=== PATIENT | female | born 2000 | race African-American/Black ===

== ENCOUNTER 2023-09-21 09:55 | Emergency (ER) | payer OTHER, SELFPAY ==
[2023-09-21 10:11] VITALS: BP 135/79
[2023-09-21 10:51] VITALS: BP 117/69
--- NOTE | 2023-09-21 10:52 | ED.GENMED ---
History of Present Illness
<Nae Brand PA-C - Last Filed: 09/21/23 16:54>
General
Chief Complaint: Gynecological Problem
Source: patient
Exam Limitations: none
Time Seen by Provider: 09/21/23 10:25
Nursing documentation reviewed up to this point in time: agreed with
History of Present Illness
History of Present Illness:
23 y/o F with hh/o HTN, HLD, prediabetic no on meds
here with 4 days of vaginal itching, irritation, bumpy rash
She has 1 sexual partner, for the last 1 to 2 months and says that previous partner she has used condoms mostly. She has never had genital herpes or herpes simplex in her mouth. Patient says that she has no dysuria, urinary frequency, pelvic pain.
She the last couple days she has felt like maybe she had a low-grade temperature and not well as well. She used a Monistat cream before coming today suspecting that she had a yeast infection which she has had a history of previously once before.
She has never seen a patrol community service officer
Past History
<Nae Brand PA-C - Last Filed: 09/21/23 16:54>
Past History
ED Past Medical History: Psychiatric and Other (Asberger's, anxiety, pseudoseizures.)
ED Past Surgical History: Cholecystectomy
Social History
Tobacco: Non-smoker
Alcohol: None
Drug: None
Personal: Single
Living: other (on line student)
Family History
Family History: Unable to obtain
Review of Systems
<Nae Brand PA-C - Last Filed: 09/21/23 16:54>
Review of Systems
Allergies reviewed?: Yes
All Other Systems: Not applicable
Phy Exam
<TEO Fernandez Last Filed: 09/21/23 16:54>
Physical Exam
Physical Exam:
GENERAL: Alert , in no apparent distress
EYE: pupils equal and reactive
NECK: Supple
ENT: o/p clr, mmm.
CARDIAC: Regular rate and rhythm .
LUNGS: Clear breath sounds bilaterally, no acute respiratory distress, no wheezes/rales/rhonchi
ABDOMEN: Soft, without focal tenderness, no r/g, no cvat, normal bowel sounds
gu: Patient has redness to the vulva with several vesicular lesions, 1 is an ulceration with a an yellowish base in her labia minora and near her introitus suspicious for genital herpes she is a large amount of white clumpy discharge in her vagina
but this is possibly
The cream that she used prior to arrival
She had no CMT, no adnexal tenderness
SKIN: Warm and dry, skin intact.
MUSCULOSKELETAL: No edema, well perfused. neg katie's sign
PSYCH: Normal and appropriate interaction.
Course
<Nae Brand PA-C - Last Filed: 09/21/23 16:54>
Orders/Labs/Results
Orders:
Orders
09/21/23 10:56
Bedside Glucose- Treatment ONCE
09/21/23 10:57
Test Result ONCE
09/21/23 10:58
Fluconazole [Diflucan] 150 mg PO NOW STA
Valacyclovir HCl [Valtrex] 1,000 mg PO NOW STA
09/21/23 11:12
Herpes Culture Reflex - Typing Urgent
PRUDENCE Source: Genital
Specimen Description:
Source:: GENITAL
Date Specimen was Collected: 09/21/23
Time Specimen was Collected: 11:11
Chlamydia/GC by PCR Urgent
PRUDENCE Source: Endo-Cervical
Specimen Description:
Source:: ENDOCERVICAL
Date Specimen was Collected: 09/21/23
Time Specimen was Collected: 11:10
Trichomonas - Wet Prep Urgent
PRUDENCE Source: Vagina
Specimen Description:
Date Specimen was Collected: 09/21/23
Time Specimen was Collected: 11:10
09/21/23 11:18
Fluconazole [Diflucan] 150 mg PO NOW STA
09/21/23 11:36
HCG, Urine Qualitative Screen Urgent
Date Specimen was Collected: 09/21/23
Time Specimen was Collected: 11:26
Vital Signs
Initial and Last Documented VS:
Initial Vital Signs
Temp Pulse Resp BP Pulse Ox
99.1 F 122 16 135/79 97
09/21/23 10:11 09/21/23 10:11 09/21/23 10:11 09/21/23 10:11 09/21/23 10:11
Last Documented Vital Signs
Temp Pulse Resp BP Pulse Ox
98.5 F 117 16 100/71 99
09/21/23 12:36 09/21/23 12:36 09/21/23 12:36 09/21/23 12:32 09/21/23 12:36
<James Mercado PA-C - Last Filed: 09/24/23 09:11>
Orders/Labs/Results
Orders:
Orders
09/21/23 10:56
Bedside Glucose- Treatment ONCE
09/21/23 10:57
Test Result ONCE
09/21/23 10:58
Fluconazole [Diflucan] 150 mg PO NOW STA
Valacyclovir HCl [Valtrex] 1,000 mg PO NOW STA
09/21/23 11:12
Herpes Culture Reflex - Typing Urgent
PRUDENCE Source: Genital
Specimen Description:
Source:: GENITAL
Date Specimen was Collected: 09/21/23
Time Specimen was Collected: 11:11
Chlamydia/GC by PCR Urgent
PRUDENCE Source: Endo-Cervical
Specimen Description:
Source:: ENDOCERVICAL
Date Specimen was Collected: 09/21/23
Time Specimen was Collected: 11:10
Trichomonas - Wet Prep Urgent
PRUDENCE Source: Vagina
Specimen Description:
Date Specimen was Collected: 09/21/23
Time Specimen was Collected: 11:10
09/21/23 11:18
Fluconazole [Diflucan] 150 mg PO NOW STA
09/21/23 11:36
HCG, Urine Qualitative Screen Urgent
Date Specimen was Collected: 09/21/23
Time Specimen was Collected: 11:26
Vital Signs
Initial and Last Documented VS:
Initial Vital Signs
Temp Pulse Resp BP Pulse Ox
99.1 F 122 16 135/79 97
09/21/23 10:11 09/21/23 10:11 09/21/23 10:11 09/21/23 10:11 09/21/23 10:11
Last Documented Vital Signs
Temp Pulse Resp BP Pulse Ox
98.5 F 117 16 100/71 99
09/21/23 12:36 09/21/23 12:36 09/21/23 12:36 09/21/23 12:32 09/21/23 12:36
<Nae Brand PA-C - Last Filed: 09/21/23 16:54>
MDM/Problems Addressed
Differential Diagnosis Includes:
Genital herpes, yeast vulvovaginitis, shingles
MDM/Problems Addressed:
23-year-old female sexually active with 1 partner over the last 2 months with 4 days of genital itching, discomfort, painful bumpy lesions in her vulva. No history of genital herpes previously. Her partner has never known to have had herpes
infection previously. Patient has no urinary symptoms. LMP is 3 weeks ago. On exam she has generalized erythema consistent with a yeast vulvovaginitis as well as what look like herpetic lesions on the vulva and including her introitus consistent
with genital herpes infection. Her lesions were swabbed for culture. She was tested for gonorrhea, chlamydia, trichomonas.
Safe sex precautions given, follow-up with FORESTRY CONTRACTOR encouraged. Patient will need formal STD testing should her culture come back positive.
<Nae Brand PA-C - Last Filed: 09/21/23 16:54>
*Critical Care Note
Total Time (30-74mins, 75-104mins- exclusive of procedures): Not Applicable
<James Mercado PA-C - Last Filed: 09/24/23 09:11>
Update Note
Update Note:
9:10 AM September 24, 2023. Patient was contacted and informed of positive herpes simplex virus results. Advised to continue the Valtrex and avoidance of intercourse while having active outbreaks/lesions.
ED Attending Note
<Nae Brand PA-C - Last Filed: 09/21/23 16:54>
-
Portions of this chart may have been created with voice recognition software.� Occasional wrong word or��sound alike� substitutions may have occurred due to the inherent limitations of voice recognition software.
Discharge Plan
Departure
Patient Disposition: Home (Routine Discharge)
Date of Disposition: 09/21/23
Time of Disposition: 12:15
Patient with high blood pressure during this ER visit?: No
Condition: Fair
Covid-19: Not Applicable
Discharge Problem:
Vaginal yeast infection, Vaginal lesion
Instructions: Genital Herpes (DC), Vaginal Yeast Infection, Adult ED
Prescriptions:
New
valacyclovir 1 gram tablet
1,000 mg PO BID Qty: 20 0RF
clotrimazole 1 % cream
1 appful vaginal HS 3 Days Qty: 45 0RF
No Action
lamotrigine 25 MG tablet, chewable dispersible
25 mg PO DAILY
hydroxyzine pamoate 100 MG capsule
100 mg PO DAILY@1800
clonidine HCl 0.1 MG tablet
0.2 mg PO TID@0600,1200,1800
venlafaxine 75 MG capsule,extended release 24hr
75 mg PO DAILY@2100
dextroamphetamine-amphetamine 10 MG tablet
20 mg PO DAILY@1200
venlafaxine [Effexor XR] 150 MG capsule,extended release 24hr
150 mg PO DAILY
lamotrigine 100 MG tablet
200 mg PO DAILY
methylphenidate HCl 36 MG tablet extended release 24hr
72 mg PO DAILY
desmopressin 0.1 MG tablet
0.3 mg PO DAILY@2100
ondansetron HCl 4 mg tablet
4 mg PO DAILY PRN (Reason: nausea and vomiting) 4 Days Qty: 7 0RF
Referrals:
Arleen Baker, DO [Active] - Follow up in 5-7 days (gyne)
UNKNOWN - PT DOES,NOT KNOW [Family Provider] -
Activity Restrictions/Additional Instructions:
Is possible that you have both a yeast infection as well as a genital herpes outbreak. We swabbed the lesions to send for testing but in the meantime he should use Valtrex twice a day for 7-10 days.
No sex until the lesions are gone and you have had results of your tests.
If you test positive for herpes you should also be tested for HIV and syphilis, you can call the patrol community service officer for this or follow-up at a [facility].
Take ibuprofen every 8 hours as needed for pain. You can apply the cream at night for 3 nights over the next 3 days to help with the itching. Return for any concerns
Interventions
Interventions:
*Risk Screen - Suicide Last Done: 09/21/23 10:54
*General Assessment Last Done: 09/21/23 10:54
*Neglect/Abuse Screening Last Done: 09/21/23 10:54
ED- Fall Risk Assessment Last Done: 09/21/23 10:54
*ED COVID-19 Vaccine History Last Done: 09/21/23 10:54
*Nursing Disposition Last Done: 09/21/23 12:36
ED-Female Genitourinary Assessment Last Done: 09/21/23 10:54
Discharge Date and Time
Discharge Date/Time: 09/21/23 12:40
Print Language: BAHAMIAN
[2023-09-21 11:00] VITALS: BP 122/81
[2023-09-21 11:40] LABS: Glucose - Point of Care 94 mg/dl (70-99)
[2023-09-21] MEDS: VALTREX 1000 MG PO (11:40)
[2023-09-21] MEDS: DIFLUCAN 150 MG PO (11:40)
[2023-09-21 12:08] VITALS: BP 58/47
[2023-09-21 12:10] LABS: HCG, Urine Qualitative Screen Negative
[2023-09-21 12:32] VITALS: BP 100/71
== END 2023-09-21 12:40 | disposition home or self-care (01) ==
LOC: EMR 09:55
PROVIDERS: Physician Assistant; EMERGENCY PHYSICIAN Emergency Medicine
DX: N89.8 Other specified noninflammatory disorders of vagina (principal); B37.31 Acute candidiasis of vulva and vagina; F41.9 Anxiety disorder, unspecified; F84.5 Asperger's syndrome; R56.9 Unspecified convulsions; I10 Essential (primary) hypertension; E78.5 Hyperlipidemia, unspecified; G47.30 Sleep apnea, unspecified; E11.9 Type 2 diabetes mellitus without complications; F90.9 Attention-deficit hyperactivity disorder, unspecified type; F31.9 Bipolar disorder, unspecified; F84.0 Autistic disorder; F41.0 Panic disorder [episodic paroxysmal anxiety]; Z79.84 Long term (current) use of oral hypoglycemic drugs; Z91.030 Bee allergy status
CPT/HCPCS: 99283; 81025; 82962; 87140; 87210; 87255; 87491; 87591

== ENCOUNTER 2023-12-08 17:07 | Emergency (ER) | payer OTHER, SELFPAY ==
[2023-12-08 17:14] VITALS: BP 132/80
[2023-12-08 17:21] VITALS: BMI 41.1
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
[2023-12-08 18:46] LABS: % Basophils 0.3 % (0-2); % Immature Granulocytes 0.5 % (0-0.5); % Lymphocytes 15.6 % (20.5-51.1); % Neutrophils 79.6 % (42.2-75.2); Absolute Immature Granulocytes 0.1 10^3/uL (0-0.05); Absolute Lymphocytes 1.8 10^3/uL (1.2-3.4); Absolute Monocytes 0.5 10^3/uL (0.1-0.6); Absolute Neutrophils 9.3 10^3/uL (1.4-6.5); Hematocrit 34.3 % (37.0-47.0); Hemoglobin 12.4 g/dL (12.0-16.0); Mean Corp Hgb Conc. 36.2 g/dL (33.0-37.0); Mean Corpuscular Hgb 25.4 pg (27.0-31.0); Mean Corpuscular Volume 70.3 fL (81.0-99.0); Mean Platelet Volume 8.8 fL (7.4-10.4); Nucleated Red Blood Cells % 0 %; Platelet Count 333 10^3/uL (130-400); Red Blood Cell Count 4.88 10^6/uL (4.20-5.40); Red Cell Dist. Width 14.1 % (11.5-14.5); White Blood Cell Count 11.6 10^3/uL (4.8-10.8)
[2023-12-08 18:58] LABS: Amphetamines Negative (Negative); Barbiturates Negative (Negative); Benzodiazepines Negative (Negative); Buprenorphine Negative (Negative); Cocaine Negative (Negative); Marijuana Negative (Negative); Methadone Negative (Negative); Methamphetamines Negative (Negative); Opiates Negative (Negative); Phencyclidine Negative (Negative); Tricyclic Antidepressants Negative (Negative)
[2023-12-08 19:04] LABS: Blood Urea Nitrogen 7 mg/dl (7-17); Calcium 10.1 mg/dl (8.4-10.2); Carbon Dioxide 20 mmol/L (22-30); Chloride 107 mmol/L (98-107); Estimated Creatinine Clearance > 125 ml/min; Glucose 96 mg/dl (70-99); Potassium 4.2 mmol/L (3.5-5.1); Sodium 141 mmol/L (135-145); eGFR > 60.00
[2023-12-08 19:22] LABS: APTT 29.1 Sec (23.4-35.0); Fibrinogen 501 MG/DL (199-459)
[2023-12-08 22:03] VITALS: BP 140/98
[2023-12-08] MEDS: TYLENOL 1000 MG PO (22:59)
[2023-12-09 07:12] VITALS: BP 126/80
--- NOTE | 2023-12-09 13:44 | ED.CRISIS ---
ED Crisis Note
ED Crisis Note
Subjective:
Patient presents for depression and threat of suicidal attempt. This was all after a break-up with her boyfriend. She has been observed overnight seen by psychiatry
Objective:
No distress. Currently eating. Nontoxic. Sitting with mom.
Assessment/Plan:
Seen and cleared by psychiatry for close outpatient follow-up patient and mom are comfortable with this approach
--- NOTE | 2023-12-09 15:53 | CON.MD ---
Consultation - Medical
-
Pt seen & evaluated at bedside with mom present. Here voluntarily for recently wanting to run into traffic (did not actually do this) after getting into argument with her fiance. Pt is currently 12 weeks . Has extensive prior psych hx, with
diagnoses of ASD, bipolar disorder, anxiety and ADHD - currently seeing Dr. Subramanian (psychiatrist) at [facility]. As per both pt and mom, pt has been hospitalized for over 12 times, some of which were for long periods spanning months - however has not
needed hospitalization for past 2 years on current regimen. It seems there have been several recent stressors, including learning she is a few weeks ago, argument with fiance, and being told by OB to stop all of her psychiatric medications
immediately. Her mom has kept her on her medications until she sees her psychiatrist so as to discuss with her first (psychiatrist is aware of pt being ), which is quite likely a good thing as pt could have experienced significant withdrawal
which can also adversely affect the fetus.
Pt describes getting into argument with fiance and feeling overwhelmed, at which time she felt 'like I don't wanna be here no more' and told fiance and sister who was also there that she was going to walk into traffic - did not do this however as
sister intervened. Pts mom says that pt and sister normally don't get along and she suspects that sister may have contributed to argument with fiance leading to a more tense situation that normally would happen. Pt is not suicidal and denies
actually wanting to , rather has relatively poor frustration tolerance and difficulty managing negative emotions. Is future oriented to and to seeing fiance again. Denies feeling depressed - does have down moments where she feels
overwhelmed, but this is described as appropriate emotional response and mom is increasing therapeutic supports to help pt through . Pt has outpatient psychiatrist and therapist,and mom is arranging for pt to see therapist twice a week to
help her through the . Pt also has wrap around services & has aides with her during the week- mom reports that she recently got the hours increased to 116 hours per week which starts next week, the rest of the time has family with her or
her fiance.
Past psych: prescribed clonidine, lamictal, vistaril and latuda. Recently stopped taking effexor & concerta due to , which also may have contributed to events as w/d from these medications can cause mood lability/irritability though should
improve with some time. See hpi for further psych hx.
ASD/bipolar disorder/anxiety/ADHD as per hx
adjustment d/o
MSE: calm,cooperative,pleasant,speech is normal rate & rhythm,mood is OK, affect is appropriate & congruent to mood, thought process is logical & goal directed, thought content: deniesSI/HI/AVH/delusions. AAOx3. Memory not formally tested. Insight
fair. Judgement fair.
Patient can discharge home - is future oriented and with extensive services and supports available at home for her. Has appointment with psychiatrist 12/20 but Monday mom will call [facility] to see if they can move it to an earlier date. There is no SI at
this time and this incident with traffic was impulsive in context of feeling overwhelmed (as well as no associated action, in fact pt told sister and fiance her thoughts/feelings). Pt lives home with mom and has aides during the week, so someone
will be with pt 'essentially 29/08' as per mom. No indication for acute psychiatric inpatient admission at this time. No indication for involuntary intervention at this time given future orientation and extensive supports at home.
== END 2023-12-09 14:20 | disposition home or self-care (01) ==
LOC: EMR 17:07
PROVIDERS: CONSULT PHYSICIAN Psychiatry & Neurology Psychiatry; EMERGENCY PHYSICIAN Student in an Organized Health Care Education/Training Program; FAMILY PHYSICIAN Family Medicine
DX: O99.891 Other specified diseases and conditions complicating pregnancy (principal); R45.851 Suicidal ideations; O16.1 Unspecified maternal hypertension, first trimester; O99.341 Other mental disorders complicating pregnancy, first trimester; F41.9 Anxiety disorder, unspecified; F31.9 Bipolar disorder, unspecified; O99.281 Endocrine, nutritional and metabolic diseases complicating pregnancy, first trimester; Z3A.13 13 weeks gestation of pregnancy; Z90.49 Acquired absence of other specified parts of digestive tract
CPT/HCPCS: 99284; 76815; 80048; 80306; 84702; 85025; 85384; 85610; 85730; 86850; 86900; 86901; 93005

== ENCOUNTER 2024-03-02 17:49 | Observation (INO) | payer OTHER, SELFPAY ==
[2024-03-02 15:54] VITALS: BP 137/69
[2024-03-02 16:44] VITALS: BP 130/77
[2024-03-02 16:48] VITALS: BMI 42.5
[2024-03-02 17:00] VITALS: BP 122/69
--- NOTE | 2024-03-02 17:28 | ED.GENMED ---
History of Present Illness
General
Chief Complaint: Problems
Source: patient
Exam Limitations: none
Time Seen by Provider: 03/02/24 17:10
History of Present Illness
History of Present Illness:
23-year-old female who is at 25 weeks but high risk due to history of hypertension presents with pain that started around 9 last night. The patient states that the pain is in the left upper quadrant and is mild. She states she is hungry.
No nausea or vomiting. No fevers. No dysuria. No hematuria. She states she has been trying to eat healthy and walk. She states she did not lift anything heavy. No vaginal bleeding. No vaginal discharge. Patient states she is hoping just to
be reassured because she was worried because of her first . No other complaints. No injury
Past History
Past History
ED Past Medical History: HTN, Hypercholesterolemia, Psychiatric and Other (Asberger's, anxiety, pseudoseizures.)
ED Past Surgical History: Cholecystectomy
Social History
Tobacco: Non-smoker
Alcohol: None
Drug: None
Personal: Single
Living: other (on line student)
Family History
Family History: Unable to obtain
Phy Exam
Physical Exam
Physical Exam:
CONSTITUTIONAL Patient alert and oriented to person, place and time. Well-appearing. Vital signs reviewed.
HEAD atraumatic, normocephalic.
EYES eyelids normal to inspection, Extraocular muscles intact, Conjunctiva normal, Sclera normal.
NECK normal range of motion, Trachea midline, no jugular venous distention.
RESPIRATORY CHEST No respiratory distress noted, Chest expansion equal
ABDOMEN very minimal tenderness just to the left of the umbilicus and cephalad. Soft. No peritoneal findings. Left lower quadrant nontender. Right lower quadrant nontender. Right upper quadrant nontender., Bowel sounds normal. No distention.
BACK normal inspection, no obvious deformities
UPPER EXTREMITY range of motion normal, Motor strength normal, no cyanosis, no edema.
LOWER EXTREMITY range of motion normal, Motor strength normal, no cyanosis, no edema.
NEURO Speech normal, No focal motor deficits, Cristofer coma scale 15, Memory normal, Cranial Nerves intact to screening exam.
SKIN skin warm, dry, and normal in color.
Course
Orders/Labs/Results
Orders:
Orders
03/02/24 17:33
Urinalysis Reflex To Culture Urgent
Date Specimen was Collected: 03/02/24
Time Specimen was Collected: 17:21
Urine Microscopic Reflex Cult Urgent
Urine Culture Urgent
PRUDENCE Source: U
Specimen Description:
Date Specimen was Collected: 03/02/24
Time Specimen was Collected: 17:21
Abnormal Lab Results
03/02/24
17:33
Urine Ketones 1+ A
(Negative)
Ur Occult Blood Reflex 2+ A
(Negative)
Leukocyte Esterase Rfl 2+ A
(Negative)
Urine RBC 7-10 A /HPF
(0-2)
Urine WBC (Reflex) 30-40 A /HPF
(0-5)
Urine Bacteria (Reflex) Many A
(Negative)
Urine Glucose 1+ A
(Negative)
03/02/24 17:17
03/02/24 17:17
Vital Signs
Initial and Last Documented VS:
Initial Vital Signs
Temp Pulse Resp BP Pulse Ox
98.2 F 115 18 137/69 100
03/02/24 15:54 03/02/24 15:54 03/02/24 15:54 03/02/24 15:54 03/02/24 15:54
Last Documented Vital Signs
Temp Pulse Resp BP Pulse Ox
97.9 F 100 18 110/58 99
03/02/24 18:21 03/02/24 18:21 03/02/24 18:21 03/02/24 18:21 03/02/24 17:15
Information
Weeks gestation: Weeks: (25)
Location: Location: ([facility])
MDM/Problems Addressed
Differential Diagnosis Includes:
Constipation, diverticulitis, colitis, enteritis, obstetrical pain
MDM/Problems Addressed:
Abdominal pain, 25 weeks
*Pulse Oximetry
Patient hypoxic: no
*Critical Care Note
Total Time (30-74mins, 75-104mins- exclusive of procedures): Not Applicable
Data Reviewed
Source: patient
Further Testing Considered But Not Given:
Consider CT imaging but patient is and I am not concerned for acute intra-abdominal emergency.
Patient Management
Discussion with other providers: School Boat Driver (Case discussed with OB. Patient is very benign in appearance. Will send to labor and delivery for evaluation. Anticipate discharge)
ED Attending Note
-
Portions of this chart may have been created with voice recognition software.� Occasional wrong word or��sound alike� substitutions may have occurred due to the inherent limitations of voice recognition software.
Discharge Plan
Departure
Patient Disposition: LDRP
Date of Disposition: 03/02/24
Time of Disposition: 17:32
Presentation/result/management discussed w/ accepting MD/DO: Dr Yusuf
Patient with high blood pressure during this ER visit?: No
Discharge Problem:
Abdominal pain,
Interventions
Interventions:
*Risk Screen - Suicide Last Done: 03/02/24 18:21
*General Assessment Last Done: 03/02/24 16:33
*Neglect/Abuse Screening Last Done: 03/02/24 16:33
ED- Fall Risk Assessment Last Done: 03/02/24 16:33
*Nursing Disposition Last Done: 03/02/24 17:43
ED-Female Genitourinary Assessment Last Done: 03/02/24 16:33
Discharge Date and Time
Discharge Date/Time: 03/02/24 17:48
[2024-03-02 17:44] LABS: Urine Albumin Trace (Neg - Trace); Urine Bilirubin Negative (Negative); Urine Character Very Cloudy (Clear); Urine Color Yellow; Urine Glucose 1+ (Negative); Urine Ketone 1+ (Negative); Urine Leukocyte 2+ (Negative); Urine Nitrite Negative (Negative); Urine Occult Blood 2+ (Negative); Urine Specific Gravity 1.025 (<1.030); Urine Urobilinogen Negative (Neg - 1+)
[2024-03-02 17:50] LABS: Urine Squamous Cell >30 /LPF (Few)
[2024-03-02 17:51] LABS: Urine Bacteria Many (Negative); Urine White Cell 30-40 /HPF (0-5)
[2024-03-02 18:21] VITALS: BP 110/58; BMI 39.8
== END 2024-03-02 19:33 | disposition home or self-care (01) ==
LOC: LDRP 17:49
PROVIDERS: ADMITTING PHYSICIAN Obstetrics & Gynecology; EMERGENCY PHYSICIAN Emergency Medicine; FAMILY PHYSICIAN Family Medicine
DX: O23.42 Unspecified infection of urinary tract in pregnancy, second trimester (principal); N39.0 Urinary tract infection, site not specified; R10.32 Left lower quadrant pain; O10.012 Pre-existing essential hypertension complicating pregnancy, second trimester; Z3A.25 25 weeks gestation of pregnancy; F31.9 Bipolar disorder, unspecified; O99.342 Other mental disorders complicating pregnancy, second trimester; F41.9 Anxiety disorder, unspecified; O26.892 Other specified pregnancy related conditions, second trimester; E78.00 Pure hypercholesterolemia, unspecified; O99.282 Endocrine, nutritional and metabolic diseases complicating pregnancy, second trimester; Z91.030 Bee allergy status; Z91.018 Allergy to other foods; Z90.49 Acquired absence of other specified parts of digestive tract; Z82.49 Family history of ischemic heart disease and other diseases of the circulatory system
CPT/HCPCS: 81003; 81015; 87086; 99283; G0378

== ENCOUNTER 2024-04-08 20:18 | Emergency (ER) | payer OTHER, SELFPAY ==
[2024-04-08 20:28] VITALS: BP 144/86
[2024-04-08 20:49] LABS: Urine Albumin 2+ (Neg - Trace); Urine Bilirubin 1+ (Negative); Urine Character Slightly Cloudy (Clear); Urine Color Yellow; Urine Glucose Negative (Negative); Urine Ketone 3+ (Negative); Urine Leukocyte 3+ (Negative); Urine Nitrite Negative (Negative); Urine Occult Blood 1+ (Negative); Urine Specific Gravity 1.025 (<1.030); Urine Urobilinogen 2+ (Neg - 1+)
[2024-04-08 20:50] LABS: % Basophils 0.2 % (0-2); % Eosinophils 0.2 % (0-6); % Immature Granulocytes 0.6 % (0-0.5); % Monocytes 7.7 % (1.7-9.3); % Neutrophils 73.3 % (42.2-75.2); Absolute Immature Granulocytes 0.1 10^3/uL (0-0.05); Absolute Lymphocytes 1.8 10^3/uL (1.2-3.4); Absolute Monocytes 0.8 10^3/uL (0.1-0.6); Absolute Neutrophils 7.4 10^3/uL (1.4-6.5); Hematocrit 32.1 % (37.0-47.0); Hemoglobin 11.4 g/dL (12.0-16.0); Mean Corp Hgb Conc. 35.5 g/dL (33.0-37.0); Mean Corpuscular Hgb 25.9 pg (27.0-31.0); Mean Corpuscular Volume 72.8 fL (81.0-99.0); Mean Platelet Volume 10.3 fL (7.4-10.4); Nucleated Red Blood Cells % 0 %; Platelet Count 317 10^3/uL (130-400); Red Blood Cell Count 4.41 10^6/uL (4.20-5.40); White Blood Cell Count 10.1 10^3/uL (4.8-10.8)
[2024-04-08 21:01] LABS: Lactic Acid 0.9 mmol/L (0.7-2.0)
[2024-04-08 21:03] LABS: HCG, Serum Qualitative Screen Positive
[2024-04-08 21:05] LABS: Urine Bacteria Moderate (Negative); Urine Squamous Cell >30 /LPF (Few); Urine White Cell >100 /HPF (0-5)
[2024-04-08 21:06] LABS: ALT (SGPT) 11 U/L (0-35); AST (SGOT) 19 U/L (14-36); Albumin 3.4 g/dl (3.5-5.0); Alkaline Phosphatase 138 U/L (38-126); Blood Urea Nitrogen 5 mg/dl (7-17); Calcium 9.9 mg/dl (8.4-10.2); Carbon Dioxide 25 mmol/L (22-30); Chloride 102 mmol/L (98-107); Glucose 94 mg/dl (70-99); Lipase 37 U/L (23-300); Potassium 3.5 mmol/L (3.5-5.1); Sodium 133 mmol/L (135-145); Total Bilirubin 0.9 mg/dl (0.2-1.3); Total Protein 6.3 g/dl (6.3-8.2); eGFR > 60.00
[2024-04-08 23:58] VITALS: BP 132/80
[2024-04-09] MEDS: NSS 1000 IV (00:12)
--- NOTE | 2024-04-09 00:42 | ED.GENMED ---
Addendum entered and electronically signed by Samir Huerta Jr., PA-C 04/11/24 08:07:
The patient was contacted about her positive group B strep urine culture. She will contact her electrician maintenance for further management.
Original Note:
History of Present Illness
General
Chief Complaint: Abdominal Symptoms
Source: patient
Exam Limitations: none
Time Seen by Provider: 04/08/24 23:34
Nursing documentation reviewed up to this point in time: agreed with
History of Present Illness
History of Present Illness:
This is a 23-year-old female currently 31 weeks , following with [facility] specialist. She has history of hypertension, hyperlipidemia, fgt-mauxbur-yjowqpaph diabetes�thus far has not required medication for these diagnoses.
More recently over the past 3 weeks she complains of persistent nausea and vomiting as well as some upper abdominal discomfort. Has been following with HYPOID GEAR GENERATOR as well as GI and was diagnosed with H. pylori, completed a 2-week course of medications
including antibiotic for H. pylori which she finished the end of March. Despite as needed Zofran and Reglan as well as another medication prescribed by SOLAR DEVELOPMENT ENGINEER she continues with some nausea intermittent vomiting. She saw GI specialist today, has
been prescribed an additional 2-week course of antibiotic for H. pylori as well as other prescriptions which are at the pharmacy, she has not picked them up as yet.
She admits that GI recommended she come to the ED for evaluation for possible dehydration. She admits to intermittent chills but has not had a fever. She denies hematemesis. Denies diarrhea or constipation, denies dysuria and urgency and or
hematuria, denies back pain. She has had good movement. She denies vaginal discharge nor bleeding.
Past History
Past History
ED Past Medical History: HTN, Hypercholesterolemia, Psychiatric and Other (Asberger's, anxiety, pseudoseizures.)
ED Past Surgical History: Cholecystectomy
Social History
Tobacco: Non-smoker
Alcohol: None
Drug: None
Personal: Single
Living: other (on line student)
Employment: Not employed
Family History
Family History: Other (Noncontributory)
Phy Exam
Physical Exam
Physical Exam:
GENERAL: 23-year-old overweight female appears her stated age, bright and alert, pleasant, appears in no acute distress.
EYE: anicteric
NECK: Supple, nontender, no meningismus, no significant adenopathy.
ENT: oral mucosa is moist.
CARDIAC: Regular rate and rhythm. no murmur.
LUNGS: Clear breath sounds bilaterally, no acute respiratory distress, no wheezes/rales/rhonchi
ABDOMEN: Gravid, Soft, nondistended, without focal tenderness, no r/g, no cvat. normoactive BS.
NEUROLOGICAL: Alert and oriented x3, no focal neuro deficits. Gait is sparks and steady.
SKIN: Warm and dry, normal color, skin intact. No rash.
MUSCULOSKELETAL: No C/C/E. peripheral pulses are full and equal b/l. No palpable tenderness.
PSYCH: Normal and appropriate interaction.
Course
Orders/Labs/Results
Orders:
Orders
04/08/24 20:32
Test Result ONCE
04/08/24 20:33
Electrocardiogram (*1) Urgent
Reason for Study: Tachycardia
EKG- Treatment ONCE
04/08/24 20:42
Beta HCG Quantitative Urgent
Comment: ADD ON
Complete Blood Count/With Diff Urgent
Comprehensive Metabolic Panel Urgent
HCG, Serum Qualitative Screen Urgent
Lactic Acid Urgent
Lipase Urgent
Urinalysis Reflex To Culture Urgent
Date Specimen was Collected: 04/08/24
Time Specimen was Collected: 20:32
Urine Microscopic Reflex Cult Urgent
Urine Culture Urgent
PRUDENCE Source: U
Specimen Description:
Date Specimen was Collected: 04/08/24
Time Specimen was Collected: 20:32
04/08/24 21:21
Add On- LAB Urgent
Tests Added?: HCG quant
04/08/24 23:56
0.9% Sodium Chloride 1000 ml [Nss] 1,000 ml IV BOLUS
Abnormal Lab Results
04/08/24
20:42
Hgb 11.4 L g/dL
(12.0-16.0)
Hct 32.1 L %
(37.0-47.0)
MCV 72.8 L fL
(81.0-99.0)
MCH 25.9 L pg
(27.0-31.0)
Abs Immat Gran (auto) 0.1 H 10^3/uL
(0-0.05)
Absolute Neuts (auto) 7.4 H 10^3/uL
(1.4-6.5)
Absolute Monos (auto) 0.8 H 10^3/uL
(0.1-0.6)
Immature Gran % 0.6 H %
(0-0.5)
Lymphocytes % 18.0 L %
(20.5-51.1)
Sodium 133 L mmol/L
(135-145)
BUN 5 L mg/dl
(7-17)
Alkaline Phosphatase 138 H U/L
(38-126)
Albumin 3.4 L g/dl
(3.5-5.0)
Urine Ketones 3+ A
(Negative)
Ur Occult Blood Reflex 1+ A
(Negative)
Urine Bilirubin 1+ A
(Negative)
Urine Urobilinogen 2+ A
(Neg - 1+)
Leukocyte Esterase Rfl 3+ A
(Negative)
Urine RBC 3-6 A /HPF
(0-2)
Urine WBC (Reflex) >100 A /HPF
(0-5)
Urine Bacteria (Reflex) Moderate A
(Negative)
Urine Albumin (Reflex) 2+ A
(Neg - Trace)
04/08/24 20:42
04/08/24 20:42
Vital Signs
Initial and Last Documented VS:
Initial Vital Signs
Temp Pulse Resp BP Pulse Ox
98.2 F 116 16 144/86 98
04/08/24 20:28 04/08/24 20:28 04/08/24 20:28 04/08/24 20:28 04/08/24 20:28
Last Documented Vital Signs
Temp Pulse Resp BP Pulse Ox
98.0 F 95 18 114/43 96
04/09/24 00:11 04/09/24 00:04 04/09/24 00:04 04/09/24 01:34 04/09/24 01:34
MDM/Problems Addressed
Differential Diagnosis Includes:
Concern for dehydration, electrolyte abnormality, gastritis, biliary colic. Bowel obstruction, colitis are unlikely.
Laboratory studies are reassuring with normal white blood cell count, very mild anemia, Hgb 11.4. Electrolytes within normal limits, normal BUN and creatinine. No acidosis on electrolytes.
Urinalysis does show +3 ketones. Greater than 100 WBCs, moderate bacteria but appears to be a contaminated specimen with greater than 30 squamous epithelial cells.
Would recommend initiation of antibiotic for coverage of potential UTI while we await urine culture. Patient has an antibiotic prescription waiting for her at the pharmacy which I suspect is amoxicillin for treatment of H. pylori. This should
cover UTI as well.
Overall appears euvolemic.
Hemodynamically stable.
Initial mild sinus tachycardia has promptly resolved.
Initial blood pressure with minimally elevated systolic of 144, has improved to 132/80
Abdomen is soft without appreciable tenderness.
With reassuring labs, unremarkable exam, at this point imaging is not indicated.
At this point unclear as to what prescriptions were just recently prescribed by GI and thus will not add additional medications.
Recommend she stick with clear liquids, small sips at a time, soft bland foods.
Recommend prompt follow-up with GI as well as her electrician maintenance.
Chronic conditions affecting care: Other (Currently at 31 weeks.)
*Pulse Oximetry
Patient hypoxic: no
*EKG
Interpreted by ED Provider?: Yes
Comparison EKG: no changes (Unchanged from previous December 2023)
Rate: tachycardiac
Rhythm: sinus (Mild sinus tachycardia)
[place]: normal axis
Interval: normal interval
QRS Pattern: normal QRS
Ischemia: no ischemia
*Environment Coordinator Interpretation
Rate: normal
Interpretation: normal
Rhythm: sinus
*Critical Care Note
Total Time (30-74mins, 75-104mins- exclusive of procedures): Not Applicable
ED Attending Note
-
Portions of this chart may have been created with voice recognition software.� Occasional wrong word or��sound alike� substitutions may have occurred due to the inherent limitations of voice recognition software.
Discharge Plan
Departure
Patient Disposition: Home (Routine Discharge)
Date of Disposition: 04/09/24
Time of Disposition: 00:51
Patient with high blood pressure during this ER visit?: No
Condition: Good
Discharge Problem:
Nausea and vomiting during
Instructions: Hyperemesis gravidarum, Clear Liquid Diet, Tillman Diet, Nausea and Vomiting, Adult (DC)
Prescriptions:
No Action
lamotrigine 25 MG tablet, chewable dispersible
25 mg PO DAILY
clonidine HCl 0.1 MG tablet
0.2 mg PO TID@0600,1200,1800
lamotrigine 100 MG tablet
200 mg PO DAILY
famotidine [Pepcid] 20 mg Tablet
20 mg PO BID
tzowpvjd-[id number]-[id number]-FA 1 mg Tablet
1 tab PO DAILY
Abilify Maintena 300 mg Suspension,Extended Rel Syring
300 mg IM QMONTH
valacyclovir 1 gram tablet
500 mg PO NOON
aspirin 81 mg Tablet,Chewable
81 mg PO HS
amoxicillin 500 mg Capsule
500 mg PO Q8H Qty: 20 0RF
Referrals:
Stefan Ramirez, DO [Family Provider] - Call in 1-3 days for appt
Interventions
Interventions:
*Risk Screen - Suicide Last Done: 04/08/24 20:28
*General Assessment Last Done: 04/08/24 20:28
*Neglect/Abuse Screening Last Done: 04/08/24 20:28
ED- Fall Risk Assessment Last Done: 04/08/24 23:50
*ED COVID-19 Vaccine History Last Done: 04/08/24 23:50
*Nursing Disposition Last Done: 04/09/24 01:35
KG-Cogphc-Awegswtkjr Assessment Last Done: 04/08/24 23:50
Discharge Date and Time
Discharge Date/Time: 04/09/24 01:35
Print Language: CROATIAN
[2024-04-09 01:00] VITALS: BP 113/33
[2024-04-09 01:06] VITALS: BP 110/42
[2024-04-09 01:34] VITALS: BP 114/43
== END 2024-04-09 01:35 | disposition home or self-care (01) ==
LOC: EMR 20:18
PROVIDERS: Emergency Medicine; EMERGENCY PHYSICIAN Emergency Medicine; FAMILY PHYSICIAN Family Medicine
DX: O21.2 Late vomiting of pregnancy (principal); O99.013 Anemia complicating pregnancy, third trimester; D64.9 Anemia, unspecified; O99.891 Other specified diseases and conditions complicating pregnancy; R82.71 Bacteriuria; Z86.19 Personal history of other infectious and parasitic diseases; Z90.49 Acquired absence of other specified parts of digestive tract; Z3A.31 31 weeks gestation of pregnancy
CPT/HCPCS: 96360; 99284; 80053; 81003; 81015; 83605; 83690; 84702; 84703; 85025; 87077; 87086; 87147; 93005

== ENCOUNTER 2024-06-13 21:50 | Emergency (ER) | payer OTHER, SELFPAY ==
[2024-06-13 21:52] VITALS: BP 151/93
[2024-06-13 22:06] VITALS: BP 132/88
[2024-06-13 22:10] VITALS: BMI 34.8
--- NOTE | 2024-06-13 22:17 | ED.GENMED ---
History of Present Illness
General
Chief Complaint: Crisis Evaluation
Source: patient and records
Exam Limitations: none
Time Seen by Provider: 06/13/24 22:05
Nursing documentation reviewed up to this point in time: agreed with
History of Present Illness
History of Present Illness:
23-year-old female history of mental illness few weeks bottlefeeding the baby for is feeling stressed, apparently had a plan to jump in front of a car brought in by her mother, had high risk delivered vaginally at [facility], this
was due to high blood pressure she is off her blood pressure meds now no abdominal pain no chest pains
Past History
Past History
ED Past Medical History: HTN, Hypercholesterolemia, Psychiatric and Other (Asberger's, anxiety, pseudoseizures.)
ED Past Surgical History: Cholecystectomy
Social History
Tobacco: Non-smoker
Alcohol: None
Drug: None
Personal: Single
Living: with family (on line student)
Employment: Not employed
Family History
Family History: Other (Noncontributory)
Review of Systems
Review of Systems
All Other Systems: Not applicable
Constitutional: Reports sleep disturbance
Psychiatric: Reports depression, anxiety and suicidal; Denies hallucinations
Phy Exam
Physical Exam
Physical Exam:
Physical Exam
General: no apparent distress, not acutely ill
Neck: No jaundice
Heart: s1/s2 regular rate and rhythm, no murmur. equal radial pulses.
Lungs: no acute respiratory distress. clear bilaterally
Abdomen: Nontender
Neuro: alert and oriented. no focal neurological deficits
Skin: no rash
Psychiatric: Flat affect not hallucinating denies suicidal thoughts
Extremities: no edema.
Course
Orders/Labs/Results
Orders:
Orders
06/13/24 21:58
1:1 Observation - Suicide/ Violent Behavior As Directed
06/13/24 22:58
Clonidine [Catapres] 0.2 mg PO NOW STA
Vital Signs
Initial and Last Documented VS:
Initial Vital Signs
Temp Pulse Resp BP Pulse Ox
98.5 F 93 18 151/93 98
06/13/24 21:52 06/13/24 21:52 06/13/24 21:52 06/13/24 21:52 06/13/24 21:52
Last Documented Vital Signs
Temp Pulse Resp BP Pulse Ox
98.5 F 82 18 121/61 98
06/13/24 21:52 06/13/24 23:06 06/13/24 21:52 06/13/24 23:06 06/13/24 22:26
MDM/Problems Addressed
Differential Diagnosis Includes:
Anxiety depression stress depression suicidal thoughts psychosis
MDM/Problems Addressed:
Mental health
Chronic conditions affecting care: HTN and Previous abdomnial surgery
Acute Exacerbation and/or Progression of Chronic Illness: HTN, Previous abdomnial surgery and Psychiatric illness
*Critical Care Note
Total Time (30-74mins, 75-104mins- exclusive of procedures): Not Applicable
Update Note
Update Note:
Update discussed with her mother over the phone, patient does have a history of mental illness, has had a stressful times as the baby was born soon back to [facility] for possible eclampsia high blood pressure issues,
Mother does not with the patient hospitalized nor does the patient patient will go home with the mother this evening, mobile crisis will come out of the house tomorrow to see the patient
11 PM patient is calm cooperative clear thought process denies any suicidal thoughts, no delusions, she would like to go home to see her child reviewed with her mother previously mother will keep a really close eye on the patient, as far as her
blood pressure is modestly elevated she takes clonidine this is a correction from initial history and physical, will give her a dose here, again patient is can follow-up with mobile crisis tomorrow
1140 blood pressure improved
ED Attending Note
-
Portions of this chart may have been created with voice recognition software.� Occasional wrong word or��sound alike� substitutions may have occurred due to the inherent limitations of voice recognition software.
Discharge Plan
Departure
Patient Disposition: Home (Routine Discharge)
Date of Disposition: 06/13/24
Time of Disposition: 23:39
Patient with high blood pressure during this ER visit?: Yes
Condition: Good
Discharge Problem:
Anxiety
Instructions: Anxiety, Adult (DC), BLOOD PRESSURE
Prescriptions:
No Action
lamotrigine 25 MG tablet, chewable dispersible
25 mg PO DAILY
clonidine HCl 0.1 MG tablet
0.2 mg PO TID@0600,1200,1800
lamotrigine 100 MG tablet
200 mg PO DAILY
famotidine [Pepcid] 20 mg Tablet
20 mg PO BID
[id number]-bvw-Mn-FA 1 mg Tablet
1 tab PO DAILY
Abilify Maintena 300 mg Suspension,Extended Rel Syring
300 mg IM QMONTH
valacyclovir 1 gram tablet
500 mg PO NOON
aspirin 81 mg Tablet,Chewable
81 mg PO HS
amoxicillin 500 mg Capsule
500 mg PO Q8H Qty: 20 0RF
Referrals:
NONE,* [Family Provider] -
Activity Restrictions/Additional Instructions:
Follow-up with [facility] crisis
Call mobile crisis tomorrow
Return to the ER if any concerns
Interventions
Interventions:
*Risk Screen - Suicide Last Done: 06/13/24 21:52
*General Assessment Last Done: 06/13/24 21:52
*Neglect/Abuse Screening Last Done: 06/13/24 21:52
*ED- Fall Risk Assessment Last Done: 06/13/24 21:52
*ED COVID-19 Vaccine History Last Done: 06/13/24 21:52
ED-Psychological Assessment Last Done: 06/13/24 22:26
Discharge Date and Time
Print Language: NEPALI
[2024-06-13 22:56] VITALS: BP 124/60
[2024-06-13 23:00] VITALS: BP 121/61
[2024-06-13] MEDS: CATAPRES 0.2 MG PO (23:06)
[2024-06-14 00:01] VITALS: BP 114/67
[2024-06-14 00:03] VITALS: BP 114/67
== END 2024-06-14 00:09 | disposition home or self-care (01) ==
LOC: EMR 21:50
PROVIDERS: EMERGENCY PHYSICIAN Emergency Medicine
DX: O99.345 Other mental disorders complicating the puerperium (principal); F41.9 Anxiety disorder, unspecified; O16.5 Unspecified maternal hypertension, complicating the puerperium
CPT/HCPCS: 99283

== ENCOUNTER 2024-06-23 19:16 | Emergency (ER) | payer OTHER, SELFPAY ==
[2024-06-23 19:20] VITALS: BP 134/76
[2024-06-23 19:53] LABS: % Basophils 0.2 % (0-2); % Eosinophils 0.5 % (0-6); % Immature Granulocytes 0.4 % (0-0.5); % Lymphocytes 22.4 % (20.5-51.1); % Monocytes 4.8 % (1.7-9.3); % Neutrophils 71.7 % (42.2-75.2); Absolute Eosinophils 0.1 10^3/uL (0-0.7); Absolute Lymphocytes 2.1 10^3/uL (1.2-3.4); Absolute Monocytes 0.5 10^3/uL (0.1-0.6); Absolute Neutrophils 6.9 10^3/uL (1.4-6.5); Hematocrit 36.8 % (37.0-47.0); Hemoglobin 12.4 g/dL (12.0-16.0); Mean Corp Hgb Conc. 33.7 g/dL (33.0-37.0); Mean Corpuscular Volume 71.3 fL (81.0-99.0); Mean Platelet Volume 9.3 fL (7.4-10.4); Nucleated Red Blood Cells % 0 %; Platelet Count 351 10^3/uL (130-400); Red Blood Cell Count 5.16 10^6/uL (4.20-5.40); Red Cell Dist. Width 16.6 % (11.5-14.5); White Blood Cell Count 9.6 10^3/uL (4.8-10.8)
[2024-06-23 20:00] LABS: Lactic Acid 1.5 mmol/L (0.7-2.0)
[2024-06-23 20:02] LABS: ALT (SGPT) 13 U/L (0-35); AST (SGOT) 18 U/L (14-36); Albumin 4.3 g/dl (3.5-5.0); Alkaline Phosphatase 100 U/L (38-126); Blood Urea Nitrogen 12 mg/dl (7-17); Calcium 10.1 mg/dl (8.4-10.2); Carbon Dioxide 24 mmol/L (22-30); Chloride 108 mmol/L (98-107); Glucose 108 mg/dl (70-99); Potassium 4.3 mmol/L (3.5-5.1); Sodium 139 mmol/L (135-145); Total Bilirubin 0.7 mg/dl (0.2-1.3); Total Protein 6.8 g/dl (6.3-8.2); eGFR > 60.00
[2024-06-23 21:31] LABS: Urine Albumin Negative (Neg - Trace); Urine Bilirubin Negative (Negative); Urine Character Clear (Clear); Urine Color Yellow; Urine Glucose Negative (Negative); Urine Ketone Negative (Negative); Urine Leukocyte 1+ (Negative); Urine Nitrite Negative (Negative); Urine Occult Blood Negative (Negative); Urine Specific Gravity 1.025 (<1.030); Urine Urobilinogen Negative (Neg - 1+)
[2024-06-23 21:37] LABS: Urine Bacteria Few (Negative); Urine Red Blood Cell 0-2 /HPF (0-2); Urine Squamous Cell >30 /LPF (Few)
[2024-06-23 23:37] VITALS: BP 137/64; BMI 35.8
--- NOTE | 2024-06-24 00:06 | ED.GENMED ---
Addendum entered and electronically signed by Nae Brand PA-C 06/26/24 06:58:
urine culture strep group b pos
i spoke with pt
she is asymtpomatic, no longer having pain, no fever, chills, vomiting, back pain
she had group b strep during and got IV abx
pt can have this urine rechecked
hold abx at this time
likely contaminated
Original Note:
History of Present Illness
General
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
Source: patient
Exam Limitations: none
Time Seen by Provider: 06/23/24 23:59
Nursing documentation reviewed up to this point in time: agreed with
History of Present Illness
History of Present Illness:
Pleasant 24-year-old female status post full-term vaginal delivery 2 weeks 3 days ago presents with lower abdominal pain. She states that this pain has been present since the and has been improving since. Patient concerned because the pain
persists. Patient is diabetic and on oral meds. She does have a history of seizure disorder but has not had a seizure. Denies fever, chills, nausea, vomiting, chest pain, shortness of breath, vaginal bleeding, or vaginal discharge.
Past History
Past History
ED Past Medical History: HTN, Hypercholesterolemia, Psychiatric and Other (Asberger's, anxiety, pseudoseizures.)
ED Past Surgical History: Cholecystectomy
Social History
Tobacco: Non-smoker
Alcohol: None
Drug: None
Personal: Single
Living: with family (on line student)
Employment: Not employed
Family History
Family History: Other (Noncontributory)
Review of Systems
Review of Systems
Allergies reviewed?: Yes
All Other Systems: ROS reviewed and negative except as documented in HPI and ROS
Constitutional: Reports no symptoms
EENT: Reports no symptoms
Respiratory: Reports no symptoms
Cardiac: Reports no symptoms
ABD/GI: Reports abdominal pain
: Reports no symptoms
Musculoskeletal: Reports no symptoms
Skin: Reports no symptoms
Neurological: Reports no symptoms
Endocrine: Reports no symptoms
Hematologic/Lymphatic: Reports no symptoms
Psychiatric: Reports anxiety
Phy Exam
General Physical Exam
General Presentation: well appearing and no apparent distress
General Skin: warm and dry
General Habitus: normal
General Mental: alert
General Hydration: appears well hydrated
ENT Exam
ENT Exam: EOMI, pharynx normal, neck supple and normocephalic
Eye Exam
Eye Exam: PERRL, cornea clear and conjunctiva normal
Cardiovascular Exam
Cardiovascular Exam: regular rate/rhythm, no edema, no murmur and normal peripheral pulses
Pulmonary Exam
Pulmonary Exam: lungs clear, no respiratory distress, no rales, no crackles, no rhonchi, no stridor, no wheezing and no cough
Gastrointestinal Exam
Gastrointestinal Exam: normal bowel sounds (All 4 quadrants), non tender, soft, no organomegaly, no pulsatile mass and non distended
Palpation: left upper quadrant: Minimal tenderness, left lower quadrant: Minimal tenderness, right upper quadrant: Minimal tenderness and right lower quadrant: Minimal tenderness
Neurological Exam
Neurological Exam: alert, oriented x3, no motor deficits and speech normal
Musculoskeletal Exam
Musculoskeletal Exam: full ROM and no edema
Skin Exam
Skin Exam: normal color, warm/dry, no rash and no petechia
Psychiatric Exam
Psychiatric Exam: normal mood/affect
Course
Orders/Labs/Results
Orders:
Orders
06/23/24 19:29
Pelvis (Non Obstetric) US [US Pelvis Only (non-obstetric)] Urgent
Comment: vaginal deliver 2 weeks ago
Reason For Exam: Lower abdominal pain
06/23/24 19:32
Complete Blood Count/With Diff Urgent
Comprehensive Metabolic Panel Urgent
Lactic Acid Routine
06/23/24 21:23
UA Reflex to Culture [Urinalysis Reflex To Culture] Urgent
Date Specimen was Collected: 06/23/24
Time Specimen was Collected: 20:18
Urine Microscopic Reflex Cult Urgent
Urine Culture Urgent
PRUDENCE Source: U
Specimen Description:
Date Specimen was Collected: 06/23/24
Time Specimen was Collected: 20:18
06/24/24 00:34
CT Abd/pelvis W Iv Cont Urgent
Comment:
Reason For Exam: lower abd pain s/p childbirth 2 weeks ago
Abnormal Lab Results
06/23/24 06/23/24
19:32 21:23
Hct 36.8 L %
(37.0-47.0)
MCV 71.3 L fL
(81.0-99.0)
MCH 24.0 L pg
(27.0-31.0)
RDW 16.6 H %
(11.5-14.5)
Absolute Neuts (auto) 6.9 H 10^3/uL
(1.4-6.5)
Chloride 108 H mmol/L
(98-107)
Glucose 108 H mg/dl
(70-99)
Leukocyte Esterase Rfl 1+ A
(Negative)
Urine Bacteria (Reflex) Few A
(Negative)
06/23/24 19:32
06/23/24 19:32
Vital Signs
Initial and Last Documented VS:
Initial Vital Signs
Temp Pulse Resp BP Pulse Ox
98.0 F 112 16 134/76 97
06/23/24 19:20 06/23/24 19:20 06/23/24 19:20 06/23/24 19:20 06/23/24 19:20
Last Documented Vital Signs
Temp Pulse Resp BP Pulse Ox
98.0 F 78 16 137/64 98
06/23/24 19:20 06/23/24 23:37 06/23/24 23:37 06/23/24 23:37 06/23/24 23:37
*Radiology
Radiology exam reviewed: radiology read reviewed (Ultrasonography report reviewed)
*Pulse Oximetry
Patient hypoxic: no
*Critical Care Note
Total Time (30-74mins, 75-104mins- exclusive of procedures): Not Applicable
Update Note
Update Note:
Diagnostic Imaging Report
SignedOrder #:[id number]
Exams: US Pelvis Only (non-obstetric)
EXAMINATION: Ultrasound pelvis only
INDICATION: 24-year-old with lower abdominal pain. History of vaginal delivery 2 weeks ago. Intrauterine device reportedly present for 2 weeks.
COMPARISON: CT of the abdomen and pelvis from December 27, 2022.
FINDINGS: Ultrasound of the pelvis is performed using transabdominal technique through a distended urinary bladder.
The uterus is enlarged compatible with recent state, the uterus measuring 12.1 x 5.4 x 8.6 cm. Intrauterine device is visualized and is appropriately positioned within the endometrial canal. Endometrial stripe measures 4.1 mm, with no
focal abnormality.
There is no evidence for uterine mass.
Both ovaries are visualized and appear within normal limits with normal color and spectral Doppler imaging. The right ovary measures 3.3 x 1.5 x 1.5 cm, and the left ovary measures 4.0 x 1.5 x 2.9 cm. There is no evidence for abnormal adnexal mass
or free pelvic fluid.
IMPRESSION: Enlarged uterus compatible with recent state.
Intrauterine device is visualized and is appropriately positioned within the endometrial canal. Endometrial stripe measures 4.1 mm, with no focal abnormality.
Normal appearance of both ovaries. No evidence for abnormal adnexal mass or free pelvic fluid.
Electronically signed by Orlando Richardson MD, 06/23/2024 8:59 PM
NAME: QI BHAT
DATE OF EXAM: 06/24/2024
Patient No: [id number]
Physician: TODD
Date of : 2000
Past Medical History (entered by Technologist):
Reason For Exam (entered by Technologist):
Other Notes (entered by Technologist): Lower abdominal pain; pt delivered full term baby 2 weeks ago.
Prior sent
Additional Information (per [facility]):
CT ABDOMEN AND PELVIS WITH IV CONTRAST
IMPRESSION
IUD in the uterus appears appropriately located. Mild fluid in the endometrial stripe probably physiologic assuming no discharge. No adnexal masses or significant free fluid
Normal appendix coronal images 24-25.
No renal or obstructing ureteral stones. No hydronephrosis or hydroureter.
Bowel is without evidence of obstruction.
Cholecystectomy
Case faxed/finalized at 1:55 AM eastern time . If there are any questions please contact me at [phone].
ED Attending Note
-
Portions of this chart may have been created with voice recognition software.� Occasional wrong word or��sound alike� substitutions may have occurred due to the inherent limitations of voice recognition software.
Discharge Plan
Departure
Patient Disposition: Home (Routine Discharge)
Date of Disposition: 06/24/24
Time of Disposition: 01:59
Patient with high blood pressure during this ER visit?: Yes
Discharge Problem:
Abdominal pain
Instructions: Abdominal Pain, BLOOD PRESSURE
Prescriptions:
No Action
lamotrigine 25 MG tablet, chewable dispersible
25 mg PO DAILY
clonidine HCl 0.1 MG tablet
0.2 mg PO TID@0600,1200,1800
lamotrigine 100 MG tablet
200 mg PO DAILY
famotidine [Pepcid] 20 mg Tablet
20 mg PO BID
[id number] 1 mg Tablet
1 tab PO DAILY
Abilify Maintena 300 mg Suspension,Extended Rel Syring
300 mg IM QMONTH
valacyclovir 1 gram tablet
500 mg PO NOON
aspirin 81 mg Tablet,Chewable
81 mg PO HS
amoxicillin 500 mg Capsule
500 mg PO Q8H Qty: 20 0RF
Referrals:
Stefan Ramirez, [Family Provider] -
Activity Restrictions/Additional Instructions:
Please follow-up with your HIGH DENSITY PRESS LABORER, as discussed.
Thank You for choosing [facility].
It was a pleasure meeting you and taking part in your care. We hope for your continued healing and wellness.
Please read discharge instructions in their entirety. However, they are for general education and may not describe your exact diagnosis at discharge. Information on your ER visit and medical conditions were discussed with you along with appropriate
follow up information...
If indicated, please take your medications as instructed and indicated on discharge paperwork.
Please schedule a follow up appointment as directed. Call to schedule an appointment
Please return to the emergency department with ANY change in, persisting, or worsening of symptoms. If any of your symptoms do not improve, or persist, or become more severe within 6-12 hours, please return to the emergency department for further
care.
Please return to the emergency department if you develop a headache, neck pain/stiffness, fever greater than 100.4F, chest pain, shortness of breath, persistent nausea, vomiting, slurred speech, difficulty walking, numbness/tingling, weakness, signs
of infection or any other symptoms that are worrisome to you.
If you have any questions or concerns please do not hesitate to call the Hospital at or E-mail me directly at [email or web address]
Interventions
Interventions:
*Risk Screen - Suicide Last Done: 06/23/24 19:20
*General Assessment Last Done: 06/23/24 19:20
*Neglect/Abuse Screening Last Done: 06/23/24 19:20
*ED- Fall Risk Assessment Last Done: 06/23/24 19:20
*ED COVID-19 Vaccine History Last Done: 06/23/24 19:20
*Nursing Disposition Last Done: 06/24/24 02:47
ED-Female Genitourinary Assessment Last Done: 06/23/24 23:37
Discharge Date and Time
Discharge Date/Time: 06/24/24 02:47
Print Language: MAORI
== END 2024-06-24 02:47 | disposition home or self-care (01) ==
LOC: EMR 19:16
PROVIDERS: Student in an Organized Health Care Education/Training Program; EMERGENCY PHYSICIAN Student in an Organized Health Care Education/Training Program; FAMILY PHYSICIAN Family Medicine
DX: R10.9 Unspecified abdominal pain (principal); I10 Essential (primary) hypertension; E78.00 Pure hypercholesterolemia, unspecified; F41.9 Anxiety disorder, unspecified; E11.9 Type 2 diabetes mellitus without complications; G40.909 Epilepsy, unspecified, not intractable, without status epilepticus; Z90.49 Acquired absence of other specified parts of digestive tract
CPT/HCPCS: 99284; 74177; 76856; 80053; 81003; 81015; 83605; 85025; 87077; 87086; 87147; Q9967

== ENCOUNTER 2024-09-05 14:11 | Emergency (ER) | payer OTHER, SELFPAY ==
[2024-09-05 14:18] VITALS: BP 124/85
[2024-09-05 14:30] VITALS: BMI 38.6
--- NOTE | 2024-09-05 14:30 | EDRN ---
Patient stated that she got 'into it with my mother after she started with me. I'm not going to say nothing from now on. I said 'I wanted to kill myself but I don't mean it. I said because I was angry.' Commercial Litigation Paralegal with patient.
--- NOTE | 2024-09-05 15:19 | ED.GENMED ---
History of Present Illness
General
Chief Complaint: Crisis Evaluation
Source: patient
Exam Limitations: none
Time Seen by Provider: 09/05/24 14:50
Nursing documentation reviewed up to this point in time: agreed with
History of Present Illness
History of Present Illness:
23-year-old female presents for mental health evaluation history of mental health issues followed at [facility] has been compliant with her meds no drugs or alcohol is a 3-month-old at home apparently got into an argument with her mother made
threats of harming herself brought here she denies any threats now she is cooperative, does not appear to be intoxicated
Past History
Past History
ED Past Medical History: HTN, Hypercholesterolemia, Psychiatric and Other (Asberger's, anxiety, pseudoseizures.)
ED Past Surgical History: Cholecystectomy
Social History
Tobacco: Non-smoker
Alcohol: None
Drug: None
Personal: Single
Living: with family (on line student)
Employment: Not employed
Family History
Family History: Other (Noncontributory)
Review of Systems
Review of Systems
All Other Systems: Not applicable
Psychiatric: Denies depression, suicidal or hallucinations
Phy Exam
Physical Exam
Physical Exam:
Physical Exam
General: no apparent distress, not acutely ill
Neck: No jaundice
Heart: Regular
Lungs: no acute respiratory distress.
Neuro: alert and oriented. no focal neurological deficits
Skin: no rash
Psychiatric: Cooperative not appear to be hallucinating denies suicidal ideation denies homicidal ideation
Extremities: no edema.
Course
Orders/Labs/Results
Orders:
Orders
09/05/24 15:10
Crisis Consult Urgent
Reason for Consult: anxiety
Vital Signs
Initial and Last Documented VS:
Initial Vital Signs
Temp Pulse Resp BP Pulse Ox
98.0 F 90 16 124/85 98
09/05/24 14:18 09/05/24 14:18 09/05/24 14:18 09/05/24 14:18 09/05/24 14:18
Last Documented Vital Signs
Temp Pulse Resp BP Pulse Ox
98.0 F 90 16 124/85 98
09/05/24 14:18 09/05/24 14:18 09/05/24 14:18 09/05/24 14:18 09/05/24 15:21
MDM/Problems Addressed
Differential Diagnosis Includes:
Anxiety depression suicidal ideation homicidal ideation
MDM/Problems Addressed:
Not intoxicated, cooperative
Chronic conditions affecting care: Psychiatric illness
Acute Exacerbation and/or Progression of Chronic Illness: Psychiatric illness
*Pulse Oximetry
SaO2: 98
Oxygen Mode of Delivery: Room air
Patient hypoxic: no
*Critical Care Note
Total Time (30-74mins, 75-104mins- exclusive of procedures): Not Applicable
Update Note
Update Note:
5 PM update patient wanted to go home follow-up as an outpatient she has a child, mother completed a 302 which was not upheld, outpatient follow-up arranged through crisis
ED Attending Note
-
Portions of this chart may have been created with voice recognition software.� Occasional wrong word or��sound alike� substitutions may have occurred due to the inherent limitations of voice recognition software.
Discharge Plan
Departure
Patient Disposition: Home (Routine Discharge)
Date of Disposition: 09/05/24
Time of Disposition: 17:08
Patient with high blood pressure during this ER visit?: No
Condition: Good
Discharge Problem:
Anxiety
Instructions: Anxiety, Adult (DC), Depression, Adult (DC)
Prescriptions:
No Action
lamotrigine 25 MG tablet, chewable dispersible
25 mg PO DAILY
clonidine HCl 0.1 MG tablet
0.2 mg PO TID@0600,1200,1800
lamotrigine 100 MG tablet
200 mg PO DAILY
famotidine [Pepcid] 20 mg Tablet
20 mg PO BID
[id number]-[id number]-Fe-FA 1 mg Tablet
1 tab PO DAILY
Abilify Maintena 300 mg Suspension,Extended Rel Syring
300 mg IM QMONTH
valacyclovir 1 gram tablet
500 mg PO NOON
aspirin 81 mg Tablet,Chewable
81 mg PO HS
amoxicillin 500 mg Capsule
500 mg PO Q8H Qty: 20 0RF
Referrals:
Stefan Ramirez, DO [Primary Care Provider]
UNKNOWN - PT NOT,INTERVIEWE [Family Provider]
Activity Restrictions/Additional Instructions:
Continue your medications as prescribed follow-up with Cassius Whitley
Interventions
Interventions:
*Risk Screen - Suicide Last Done: 09/05/24 14:18
*General Assessment Last Done: 09/05/24 14:30
*Neglect/Abuse Screening Last Done: 09/05/24 14:18
*ED- Fall Risk Assessment Last Done: 09/05/24 14:30
*ED COVID-19 Vaccine History Last Done: 09/05/24 14:30
ED-Psychological Assessment Last Done: 09/05/24 14:30
Discharge Date and Time
Print Language: HUNGARIAN
--- NOTE | 2024-09-05 18:09 | EDRN ---
Reviewed discharge instructions with patient. Verbalized understanding. Ambulated with steady gait to the lobby to wait her Lyft to come pick her up.
[2024-09-05 18:11] VITALS: BP 144/87
== END 2024-09-05 18:00 | disposition home or self-care (01) ==
LOC: EMR 14:11
PROVIDERS: EMERGENCY PHYSICIAN Emergency Medicine; PRIMARYCARE PHYSICIAN Family Medicine
DX: F41.9 Anxiety disorder, unspecified (principal); I10 Essential (primary) hypertension; E78.00 Pure hypercholesterolemia, unspecified; Z90.49 Acquired absence of other specified parts of digestive tract
CPT/HCPCS: 99283

== ENCOUNTER 2024-09-30 00:31 | Emergency (ER) | payer OTHER, SELFPAY ==
[2024-09-30 00:33] VITALS: BP 151/85
[2024-09-30 05:55] VITALS: BP 124/60; BMI 55.0
[2024-09-30 06:03] LABS: Hematocrit 35.2 % (37.0-47.0); Hemoglobin 12.3 g/dL (12.0-16.0); Mean Corp Hgb Conc. 34.9 g/dL (33.0-37.0); Mean Corpuscular Volume 71.1 fL (81.0-99.0); Nucleated Red Blood Cells % 0 %; Platelet Count 327 10^3/uL (130-400); Red Cell Dist. Width 14.1 % (11.5-14.5)
--- NOTE | 2024-09-30 06:23 | ED.GENMED ---
History of Present Illness
General
Chief Complaint: Dental Problem
Source: patient
Exam Limitations: none
Time Seen by Provider: 09/30/24 05:47
Nursing documentation reviewed up to this point in time: agreed with
History of Present Illness
History of Present Illness:
24-year-old female w h/o seizures, HTN, HLD, ADHD, Anxiety, Aspergers, Bipolar, Autism presents with severe facial pain on the right side lower jaw which started yesterday , rated as 9 out of 10 on the pain scale. The patient reports that she did
not sleep well last night due to the pain. She initially sought care at an urgent care center yesterday and was started on Amoxicillin 500 mg TID and has had two doses. Took Tylenol 1000 mg last p.m. with no relief. The patient is also experiencing
fever and chills, temp was 102.3 last p.m. Denies n/v. No difficulty swallowing or speaking.
Past History
Past History
ED Past Medical History: HTN, Hypercholesterolemia, Psychiatric and Other (Asberger's, anxiety, pseudoseizures, ADHD, Bipolar)
ED Past Surgical History: Cholecystectomy
Social History
Tobacco: Non-smoker
Alcohol: None
Drug: None
Personal: Single
Living: with family (on line student)
Employment: Not employed
Family History
Family History: Other (Noncontributory)
Review of Systems
Review of Systems
Allergies reviewed?: Yes
All Other Systems: ROS reviewed and negative except as documented in HPI and ROS
Constitutional: Reports fever
EENT: Reports other (pain and swelling right lower jaw)
Phy Exam
Physical Exam
Physical Exam:
GENERAL: No acute distress. A&Ox3.
CONSTITUTIONAL: Afebrile.
EYES: clear, conjunctivae normal
ENMT: moist mucus membranes, Pharynx nl, tender right lower jaw with mild to moderate swelling. No trismus.
RESPIRATORY: Regular respirations, nonlabored, lungs clear.
CARDIOVASCULAR: Regular rate and rhythm, no murmurs, no rubs.
GI: Soft, nontender, normal BS
MUSCULOSKELETAL: Moves with ease. Well perfused.
SKIN: Warm, dry, normal
PSYCH: Normal mood and affect. Well kept, interactive and appropriate
NEUROLOGIC: Awake, alert and oriented. No focal neurological deficits
Course
Orders/Labs/Results
Orders:
Orders
09/30/24 05:43
CT Facial Bones W/ Iv Contrast Urgent
Comment:
Reason For Exam: facial sweling
09/30/24 05:48
Complete Blood Count/With Diff Urgent
Comprehensive Metabolic Panel Urgent
09/30/24 06:20
Ketorolac [Toradol] 15 mg IV NOW STA
09/30/24 06:21
0.9% Sodium Chloride 1000 ml [Nss] 1,000 ml IV BOLUS
09/30/24 09:17
Lidocaine/Epinephrine/Tetracai [Let Topical Anesthetic Gel] 3 ml .ROUTE .STK-MED ONE
09/30/24 10:36
Amoxicillin 875 mg/Clav 125 mg [Augmentin 875 mg/125 mg] 1 tablet PO NOW STA
Abnormal Lab Results
09/30/24
05:48
Hct 35.2 L %
(37.0-47.0)
MCV 71.1 L fL
(81.0-99.0)
MCH 24.8 L pg
(27.0-31.0)
Absolute Neuts (auto) 7.6 H 10^3/uL
(1.4-6.5)
Absolute Monos (auto) 0.8 H 10^3/uL
(0.1-0.6)
Lymphocytes % 19.4 L %
(20.5-51.1)
Glucose 119 H mg/dl
(70-99)
09/30/24 05:48
09/30/24 05:48
Vital Signs
Initial and Last Documented VS:
Initial Vital Signs
Temp Pulse Resp BP Pulse Ox
98.6 F 97 16 151/85 98
09/30/24 00:33 09/30/24 00:33 09/30/24 00:33 09/30/24 00:33 09/30/24 00:33
Last Documented Vital Signs
Temp Pulse Resp BP Pulse Ox
98.6 F 90 18 124/60 97
09/30/24 00:33 09/30/24 05:55 09/30/24 05:55 09/30/24 05:55 09/30/24 06:30
Procedures
Incision/Drainage/Joint Aspiration
Right Lower Jaw:
Anethesia: topical- LET and 1% Lidocaine with Epi
Type of procedure: aspiration
Nature of site: abscess
How much fluid was obtained?: scant amount (clear-li bloody less than 1 ml)
MDM/Problems Addressed
Differential Diagnosis Includes:
Dental abscess, cellulitis
MDM/Problems Addressed:
24-year-old female w h/o seizures, HTN, HLD, ADHD, Anxiety, Aspergers, Bipolar, Autism presents with severe facial pain on the right side lower jaw which started yesterday , rated as 9 out of 10 on the pain scale. The patient reports that she did
not sleep well last night due to the pain. She initially sought care at an urgent care center yesterday and was started on Amoxicillin 500 mg TID and has had two doses. Took Tylenol 1000 mg last p.m. with no relief. The patient is also experiencing
fever and chills, temp was 102.3 last p.m. Denies n/v. No difficulty swallowing or speaking.
Afebrile, NAD
8:00 AM:
CBC, CMP with no clinically significant abnormality
Awaiting official CAT scan read
9:[address] scan report: IMPRESSION:
There are numerous dental caries. There is a PA and focal lucency along the right maxillary third molar which is suspicious for a periapical abscess. There is extensive soft tissue stranding within the right mandibular soft tissues consistent with
infection and likely odontogenic in nature. There is no drainable fluid collection. No distinct subperiosteal abscess.
Numerous prominent cervical and submandibular lymph nodes measuring up to 9 mm in short axis which are likely reactive.
Aspiration of the area reveals minute amount of clearish bloody fluid, no pus
Consulted oral maxillofacial surgeon Dr. Plascencia, sent her copy of the CT video as well as the radiology read.
She recommends changing antibiotic to Augmentin, she was will to see pt a pull the tooth today, pt states she cannot stay, she cannot do this today due to family responsibility, she states she will go to [facility] to have the tooth pulled.
The outer right lower jaw is mildly erythematous most likely from my manipulation and procedure. Instructed her on signs of worsening infection and importance of immediate f/u if these occur.
*Pulse Oximetry
SaO2: 97
Oxygen Mode of Delivery: Room air
Patient hypoxic: no
*Critical Care Note
Total Time (30-74mins, 75-104mins- exclusive of procedures): Not Applicable
ED Attending Note
-
Portions of this chart may have been created with voice recognition software.� Occasional wrong word or��sound alike� substitutions may have occurred due to the inherent limitations of voice recognition software.
Discharge Plan
Departure
Patient Disposition: Home (Routine Discharge)
Date of Disposition: 09/30/24
Time of Disposition: 10:37
Patient with high blood pressure during this ER visit?: No
Condition: Fair
Discharge Problem:
Dental infection
Instructions: Dental abscess - ED (DC)
Prescriptions:
New
amoxicillin-pot clavulanate 875-125 mg tablet
1 tab PO BID Qty: 20 0RF
No Action
lamotrigine 25 MG tablet, chewable dispersible
25 mg PO DAILY
clonidine HCl 0.1 MG tablet
0.2 mg PO TID@0600,1200,1800
lamotrigine 100 MG tablet
200 mg PO DAILY
famotidine [Pepcid] 20 mg Tablet
20 mg PO BID
[id number]-[id number]-[id number]-FA 1 mg Tablet
1 tab PO DAILY
Abilify Maintena 300 mg Suspension,Extended Rel Syring
300 mg IM QMONTH
valacyclovir 1 gram tablet
500 mg PO NOON
aspirin 81 mg Tablet,Chewable
81 mg PO HS
amoxicillin 500 mg Capsule
500 mg PO Q8H Qty: 20 0RF
Referrals:
Dana Plascencia, DDS [Active, Oral Surgery] - As needed
Boo Madrigal, DO [Family Provider, Family Practice]
Activity Restrictions/Additional Instructions:
As we discussed, continue acetaminophen, 1000 mg up to 3 times a day as needed for pain.
You may also try ibuprofen which is Advil or Motrin 600 mg, with food, every 6 hours as needed for pain.
You need to have the tooth pulled. Since you cannot do it today as was offered, call [facility] today and make appointment as soon as possible to get the tooth out.
Stop the amoxicillin
Start the Augmentin this evening as you were given a dose here today
Seek medical care immediately for worsening swelling, redness, pain, fever, vomiting or feeling sicker in any way.
Interventions
Interventions:
*Risk Screen - Suicide Last Done: 09/30/24 00:38
*General Assessment Last Done: 09/30/24 10:45
*Neglect/Abuse Screening Last Done: 09/30/24 00:38
*ED- Fall Risk Assessment Last Done: 09/30/24 00:38
*ED COVID-19 Vaccine History Last Done: 09/30/24 00:38
*Nursing Disposition Last Done: 09/30/24 10:59
Discharge Date and Time
Discharge Date/Time: 09/30/24 11:02
Print Language: NEPALI
[2024-09-30] MEDS: NSS 1000 IV (06:26)
[2024-09-30] MEDS: TORADOL 15 MG IV (06:26)
[2024-09-30 06:37] LABS: ALT (SGPT) 24 U/L (0-35); AST (SGOT) 21 U/L (14-36); Albumin 4.3 g/dl (3.5-5.0); Alkaline Phosphatase 77 U/L (38-126); Blood Urea Nitrogen 9 mg/dl (7-17); Calcium 9.4 mg/dl (8.4-10.2); Carbon Dioxide 23 mmol/L (22-30); Chloride 107 mmol/L (98-107); Estimated Creatinine Clearance > 125 ml/min; Glucose 119 mg/dl (70-99); Potassium 4.2 mmol/L (3.5-5.1); Sodium 137 mmol/L (135-145); Total Protein 6.9 g/dl (6.3-8.2); eGFR > 60.00
[2024-09-30] MEDS: AUGMENTIN 875 MG/125 MG 1 TABLET PO (10:51)
== END 2024-09-30 11:02 | disposition home or self-care (01) ==
LOC: EMR 00:31
PROVIDERS: Student in an Organized Health Care Education/Training Program; EMERGENCY PHYSICIAN Emergency Medicine; FAMILY PHYSICIAN Family Medicine
DX: K04.7 Periapical abscess without sinus (principal); I10 Essential (primary) hypertension; E78.00 Pure hypercholesterolemia, unspecified; F84.5 Asperger's syndrome; F31.9 Bipolar disorder, unspecified; F41.9 Anxiety disorder, unspecified; F90.9 Attention-deficit hyperactivity disorder, unspecified type; Z79.82 Long term (current) use of aspirin
CPT/HCPCS: 99284; 41800; 96374; 96361; 70487; 80053; 85025; Q9967

== ENCOUNTER 2024-11-03 16:30 | Emergency (ER) | payer OTHER, SELFPAY ==
[2024-11-03 16:41] VITALS: BP 126/77
[2024-11-03 17:10] LABS: Urine Character Clear (Clear)
[2024-11-03 17:12] LABS: Hematocrit 37.4 % (37.0-47.0); Hemoglobin 12.8 g/dL (12.0-16.0); Mean Corp Hgb Conc. 34.2 g/dL (33.0-37.0); Mean Corpuscular Volume 71.9 fL (81.0-99.0); Nucleated Red Blood Cells % 0 %; Platelet Count 356 10^3/uL (130-400); Red Cell Dist. Width 14.4 % (11.5-14.5)
[2024-11-03 17:17] LABS: COVID-19 Antigen Negative (Negative)
[2024-11-03 17:19] LABS: HCG, Serum Qualitative Screen Negative
[2024-11-03 17:23] LABS: ALT (SGPT) 23 U/L (0-35); AST (SGOT) 23 U/L (14-36); Albumin 4.7 g/dl (3.5-5.0); Alkaline Phosphatase 96 U/L (38-126); Blood Urea Nitrogen 14 mg/dl (7-17); Calcium 10.1 mg/dl (8.4-10.2); Carbon Dioxide 27 mmol/L (22-30); Chloride 107 mmol/L (98-107); Glucose 108 mg/dl (70-99); Lipase 52 U/L (23-300); Potassium 4.6 mmol/L (3.5-5.1); Sodium 141 mmol/L (135-145); Total Protein 7.9 g/dl (6.3-8.2); eGFR > 60.00
[2024-11-03 17:23] LABS: Urine Red Blood Cell 0-2 /HPF (0-2)
[2024-11-03 18:26] VITALS: BP 145/95; BMI 43.1
--- NOTE | 2024-11-03 18:32 | ED.GENMED ---
History of Present Illness
General
Chief Complaint: Abdominal Pain
Source: patient
Exam Limitations: none
Time Seen by Provider: 11/03/24 18:01
Nursing documentation reviewed up to this point in time: agreed with
History of Present Illness
History of Present Illness:
24-year-old female with history of ADHD, anxiety, Asperger's, autism, bipolar disorder, panic disorder, ODD, pseudoseizures, bulimia, HTN, HLD, uncomplicated vaginal delivery 5 months ago presents for abdominal cramping. She states the abdominal
cramping started 2 weeks ago, she saw a doctor who gave her prescription for antibiotics but she never got it filled. He also prescribed outpatient lab work which she never had done and referred for a CAT scan but also did not get it done. She
states she did not do the states because her mother works and she had no transportation.
She states she has been moving her bowels with intermittent diarrhea, she states she has difficulty urinating, she states she was told she needs to be tested for H. pylori.
Past History
Past History
ED Past Medical History: HTN, Hypercholesterolemia, Psychiatric and Other (Asberger's, anxiety, pseudoseizures, ADHD, Bipolar)
ED Past Surgical History: Cholecystectomy
Social History
Tobacco: Non-smoker
Alcohol: None
Drug: None
Personal: Single
Living: with family (on line student)
Employment: Disabled (Due to psychiatric issues)
Family History
Family History: Other (Noncontributory)
Review of Systems
Review of Systems
Allergies reviewed?: Yes
All Other Systems: ROS reviewed and negative except as documented in HPI and ROS
Constitutional: Denies fever
Respiratory: Denies trouble breathing
Cardiac: Denies chest pain
ABD/GI: Reports abdominal pain and diarrhea; Denies nausea or vomiting
: Reports difficulty voiding; Denies dysuria
Musculoskeletal: Reports no symptoms
Skin: Reports no symptoms
Neurological: Reports no symptoms
Phy Exam
Physical Exam
Physical Exam:
GENERAL: No acute distress. A&Ox3.
CONSTITUTIONAL: Afebrile.
EYES: clear, conjunctivae normal
ENMT: moist mucus membranes, Pharynx nl
RESPIRATORY: Regular respirations, nonlabored, lungs clear.
CARDIOVASCULAR: Regular rate and rhythm, no murmurs, no rubs.
GI: morbidly obese, Soft, tender left lower quadrant, normal normal BS
MUSCULOSKELETAL: Moves with ease. Well perfused.
SKIN: Warm, dry, pink
PSYCH: Normal mood and affect. Well kept, interactive and appropriate
NEUROLOGIC: Awake, alert and oriented. No focal neurological deficits
Course
Orders/Labs/Results
Orders:
Orders
11/03/24 16:46
Test Result ONCE
11/03/24 16:50
Urinalysis Reflex To Culture Urgent
Date Specimen was Collected: 11/03/24
Time Specimen was Collected: 16:46
Urine Microscopic Reflex Cult Urgent
11/03/24 16:52
COVID-19 Antigen Urgent
Source: Nasal Swab
11/03/24 16:56
Complete Blood Count/With Diff Urgent
Comprehensive Metabolic Panel Urgent
HCG, Serum Qualitative Screen Urgent
Lipase Urgent
11/03/24 18:19
CT Abd/Pel (IV only)-DH only Urgent
Comment:
Reason For Exam: Left-sided abdominal pain
Abnormal Lab Results
11/03/24 11/03/24
16:50 16:56
MCV 71.9 L fL
(81.0-99.0)
MCH 24.6 L pg
(27.0-31.0)
Glucose 108 H mg/dl
(70-99)
Urine Bacteria (Reflex) Few A
(Negative)
Urine Albumin (Reflex) 1+ A
(Neg - Trace)
11/03/24 16:56
11/03/24 16:56
Vital Signs
Initial and Last Documented VS:
Initial Vital Signs
Temp Pulse Resp BP Pulse Ox
98.7 F 102 20 126/77 98
11/03/24 16:41 11/03/24 16:41 11/03/24 16:41 11/03/24 16:41 11/03/24 16:41
Last Documented Vital Signs
Temp Pulse Resp BP Pulse Ox
98.7 F 91 16 138/89 97
11/03/24 16:41 11/03/24 20:31 11/03/24 20:31 11/03/24 20:31 11/03/24 20:31
MDM/Problems Addressed
Differential Diagnosis Includes:
Constipation, diverticulitis
MDM/Problems Addressed:
24-year-old female with history of ADHD, anxiety, Asperger's, autism, bipolar disorder, panic disorder, ODD, pseudoseizures, bulimia, HTN, HLD, uncomplicated vaginal delivery 5 months ago presents for abdominal cramping. She states the abdominal
cramping started 2 weeks ago, she saw a doctor who gave her prescription for antibiotics but she never got it filled. He also prescribed outpatient lab work which she never had done and referred for a CAT scan but also did not get it done. She
states she did not do the states because her mother works and she had no transportation.
She states she has been moving her bowels with intermittent diarrhea, she states she has difficulty urinating, she states she was told she needs to be tested for H. pylori.
Afebrile, NAD
CBC normal
CMP normal
UA normal
COVID-negative
hCG negative
*Pulse Oximetry
SaO2: 99
Oxygen Mode of Delivery: Room air
Patient hypoxic: not evaluated
*Critical Care Note
Total Time (30-74mins, 75-104mins- exclusive of procedures): Not Applicable
ED Attending Note
-
Portions of this chart may have been created with voice recognition software.� Occasional wrong word or��sound alike� substitutions may have occurred due to the inherent limitations of voice recognition software.
Discharge Plan
Departure
Patient Disposition: Home (Routine Discharge)
Date of Disposition: 11/03/24
Time of Disposition: 20:22
Patient with high blood pressure during this ER visit?: No
Condition: Good
Discharge Problem:
Abdominal pain
Instructions: Abdominal Pain
Prescriptions:
No Action
lamotrigine 25 MG tablet, chewable dispersible
25 mg PO DAILY
clonidine HCl 0.1 MG tablet
0.2 mg PO TID@0600,1200,1800
lamotrigine 100 MG tablet
200 mg PO DAILY
famotidine [Pepcid] 20 mg Tablet
20 mg PO BID
gezxksod-roz-Uo-FA 1 mg Tablet
1 tab PO DAILY
Abilify Maintena 300 mg Suspension,Extended Rel Syring
300 mg IM QMONTH
valacyclovir 1 gram tablet
500 mg PO NOON
aspirin 81 mg Tablet,Chewable
81 mg PO HS
amoxicillin 500 mg Capsule
500 mg PO Q8H Qty: 20 0RF
amoxicillin-pot clavulanate 875-125 mg tablet
1 tab PO BID Qty: 20 0RF
Referrals:
Boo Madrigal DO [Family Provider, Family Practice] - Call in 1-3 days for appt
Activity Restrictions/Additional Instructions:
As we discussed, your workup here today shows nothing worrisome. All your blood work is normal, your urinalysis is normal and your CAT scan is normal.
Take copies of all these reports to your family doctor.
Interventions
Interventions:
*Risk Screen - Suicide Last Done: 11/03/24 16:41
*General Assessment Last Done: 11/03/24 16:41
*Neglect/Abuse Screening Last Done: 11/03/24 16:41
*ED- Fall Risk Assessment Last Done: 11/03/24 18:26
*ED COVID-19 Vaccine History Last Done: 11/03/24 18:26
*Nursing Disposition Last Done: 11/03/24 20:32
QT-Qezntv-Slkqtnbhyd Assessment Last Done: 11/03/24 18:26
Discharge Date and Time
Discharge Date/Time: 11/03/24 20:43
Print Language: LATVIAN
[2024-11-03 20:31] VITALS: BP 138/89
== END 2024-11-03 20:43 | disposition home or self-care (01) ==
LOC: EMR 16:30
PROVIDERS: Emergency Medicine; EMERGENCY PHYSICIAN Emergency Medicine; FAMILY PHYSICIAN Family Medicine
DX: R10.9 Unspecified abdominal pain (principal); F90.9 Attention-deficit hyperactivity disorder, unspecified type; F41.9 Anxiety disorder, unspecified; E78.00 Pure hypercholesterolemia, unspecified; F31.9 Bipolar disorder, unspecified; F84.5 Asperger's syndrome; I10 Essential (primary) hypertension; Z86.59 Personal history of other mental and behavioral disorders; Z90.49 Acquired absence of other specified parts of digestive tract
CPT/HCPCS: 99284; 74177; 80053; 81003; 81015; 83690; 84703; 85025; 87811; Q9967

== ENCOUNTER 2024-11-04 21:11 | Emergency (ER) | payer OTHER, SELFPAY ==
[2024-11-04 21:12] VITALS: BP 178/80
[2024-11-04 21:30] LABS: Hematocrit 36.6 % (37.0-47.0); Hemoglobin 12.6 g/dL (12.0-16.0); Mean Corp Hgb Conc. 34.4 g/dL (33.0-37.0); Mean Corpuscular Volume 70.9 fL (81.0-99.0); Nucleated Red Blood Cells % 0 %; Platelet Count 352 10^3/uL (130-400); Red Cell Dist. Width 14.0 % (11.5-14.5)
[2024-11-04 21:44] LABS: HCG, Serum Qualitative Screen Negative
[2024-11-04 21:51] LABS: ALT (SGPT) 22 U/L (0-35); AST (SGOT) 23 U/L (14-36); Albumin 4.4 g/dl (3.5-5.0); Alkaline Phosphatase 88 U/L (38-126); Blood Urea Nitrogen 13 mg/dl (7-17); Calcium 9.8 mg/dl (8.4-10.2); Carbon Dioxide 26 mmol/L (22-30); Chloride 103 mmol/L (98-107); Glucose 91 mg/dl (70-99); Lipase 49 U/L (23-300); Potassium 4.0 mmol/L (3.5-5.1); Sodium 135 mmol/L (135-145); Total Protein 7.4 g/dl (6.3-8.2); eGFR > 60.00
--- NOTE | 2024-11-04 22:22 | ED.GENMED ---
History of Present Illness
General
Chief Complaint: Headache
Source: patient
Exam Limitations: none
Time Seen by Provider: 11/04/24 22:11
History of Present Illness
History of Present Illness:
24yoF with a history of bipolar disorder, pseudoseizures, hypertension, hyperlipidemia, and sleep apnea presenting for evaluation of a headache. Patient was seen in the emergency department yesterday for abdominal pain and diarrhea. She had a full
workup including blood work, COVID testing, UA, and CT abdomen which were all unremarkable. She started with fevers yesterday and had a fever of 102.1 this evening about 3 hours ago. Temperature is 98.2 degrees on arrival and she did not take any
antipyretics prior to this. She is currently complaining of a right frontal/temporal headache that began gradually this afternoon. Headache is described as pounding and is currently rated as a 9/10 in severity. She had 1 episode of vomiting
today. She denies any head trauma, visual changes, neck stiffness.
Past History
Past History
ED Past Medical History: HTN, Hypercholesterolemia, Psychiatric and Other (Asberger's, anxiety, pseudoseizures, ADHD, Bipolar)
ED Past Surgical History: Cholecystectomy
Social History
Tobacco: Non-smoker
Alcohol: None
Drug: None
Personal: Single
Living: with family (on line student)
Employment: Disabled (Due to psychiatric issues)
Family History
Family History: Other (Noncontributory)
Phy Exam
General Physical Exam
General Presentation: well appearing and no apparent distress
General Skin: warm and dry
General Habitus: normal
General Mental: alert
ENT Exam
ENT Exam: TM's normal, neck supple, normocephalic and other (Full range of motion of cervical spine without meningismus)
Cardiovascular Exam
Cardiovascular Exam: regular rate/rhythm
Pulmonary Exam
Pulmonary Exam: lungs clear, no respiratory distress, no rales, no crackles, no rhonchi and no wheezing
Neurological Exam
Neurological Exam: alert, speech normal and other (No focal neuro deficits)
Cristofer Coma Scale
Eye Opening: Spontaneous
Verbal Response: Oriented
Motor Response: Obeys Commands
GCS Total Score: 15
Skin Exam
Skin Exam: normal color and warm/dry
Psychiatric Exam
Psychiatric Exam: normal mood/affect
Course
Orders/Labs/Results
Orders:
Orders
11/04/24 21:15
Test Result ONCE
11/04/24 21:20
Complete Blood Count/With Diff Urgent
Comprehensive Metabolic Panel Urgent
HCG, Serum Qualitative Screen Urgent
Lipase Urgent
11/04/24 22:20
CT Head W/o Iv Contrast Urgent
Comment:
Reason For Exam: acute headache
0.9% Sodium Chloride 1000 ml [Nss] 1,000 ml IV BOLUS
Diphenhydramine [Benadryl] 25 mg IV NOW STA
Ketorolac [Toradol] 15 mg IV NOW STA
Magnesium Sulfate 2 Gram/50 ml [Magnesium Sulfate] 2 gram in 50 ml IV NOW
Prochlorperazine [Compazine] 10 mg IV NOW STA
11/04/24 22:56
Influenza A+B Rapid Molecular Urgent
PRUDENCE Source: Nasal Swab
Specimen Description:
Abnormal Lab Results
11/04/24
21:20
Hct 36.6 L %
(37.0-47.0)
MCV 70.9 L fL
(81.0-99.0)
MCH 24.4 L pg
(27.0-31.0)
11/04/24 21:20
11/04/24 21:20
Vital Signs
Initial and Last Documented VS:
Initial Vital Signs
Temp Pulse Resp BP Pulse Ox
98.2 F 89 18 178/80 99
11/04/24 21:12 11/04/24 21:12 11/04/24 21:12 11/04/24 21:12 11/04/24 21:12
Last Documented Vital Signs
Temp Pulse Resp BP Pulse Ox
97.9 F 80 20 127/69 98
11/04/24 23:08 11/04/24 23:08 11/04/24 23:08 11/04/24 23:08 11/04/24 23:08
MDM/Problems Addressed
Differential Diagnosis Includes:
24yoF here with headache that began earlier today. Gradual in onset, 9/10 in severity. Also reports a fever of 102 this evening but is afebrile here and did not take any antipyretics [employer]. Seen in ED yesterday for abd pain and diarrhea and had normal
workup. Patient is well-appearing in no distress. She is awake, alert, with a GCS of 15. No nuchal rigidity or focal deficits noted. Differential diagnosis includes: Viral illness, tension headache, migraine, sinusitis, less likely but consider
subarachnoid hemorrhage
Initial ED plan: Lab work obtained in triage which is unremarkable. Will check influenza swab and CT head. IV migraine cocktail and reassess.
*Pulse Oximetry
SaO2: 99
Oxygen Mode of Delivery: Room air
Patient hypoxic: no
*Critical Care Note
Total Time (30-74mins, 75-104mins- exclusive of procedures): Not Applicable
Update Note
Update Note:
CT head negative for acute findings. Patient is sleeping on reassessment. Headache is down to a 6/10 in severity. She is stable for discharge. Supportive care reviewed and she was advised to follow-up with her PCP.
ED Attending Note
-
Portions of this chart may have been created with voice recognition software.� Occasional wrong word or��sound alike� substitutions may have occurred due to the inherent limitations of voice recognition software.
Discharge Plan
Departure
Patient Disposition: Home (Routine Discharge)
Date of Disposition: 11/05/24
Time of Disposition: 00:03
Patient with high blood pressure during this ER visit?: No
Discharge Problem:
Acute nonintractable headache
Instructions: Headache, Adult (DC)
Prescriptions:
No Action
lamotrigine 25 MG tablet, chewable dispersible
25 mg PO DAILY
clonidine HCl 0.1 MG tablet
0.2 mg PO TID@0600,1200,1800
lamotrigine 100 MG tablet
200 mg PO DAILY
famotidine [Pepcid] 20 mg Tablet
20 mg PO BID
[id number]-wxq-Eq-FA 1 mg Tablet
1 tab PO DAILY
Abilify Maintena 300 mg Suspension,Extended Rel Syring
300 mg IM QMONTH
valacyclovir 1 gram tablet
500 mg PO NOON
aspirin 81 mg Tablet,Chewable
81 mg PO HS
amoxicillin 500 mg Capsule
500 mg PO Q8H Qty: 20 0RF
amoxicillin-pot clavulanate 875-125 mg tablet
1 tab PO BID Qty: 20 0RF
Referrals:
Boo Madrigal DO [Family Provider, Family Practice]
Activity Restrictions/Additional Instructions:
Drink plenty of fluids and stay hydrated. Take Tylenol and ibuprofen as needed for headaches.
Please follow-up with your family doctor in 2-3 days. Return to the ER with any new or worsening symptoms.
Interventions
Interventions:
*General Assessment Last Done: 11/04/24 21:12
*Neglect/Abuse Screening Last Done: 11/04/24 22:59
*ED- Fall Risk Assessment Last Done: 11/04/24 23:16
*ED COVID-19 Vaccine History Last Done: 11/04/24 22:58
*ED Influenza Vaccine History Last Done: 11/04/24 22:58
ED- Neurological Assessment Last Done: 11/04/24 23:15
Discharge Date and Time
Print Language: WOLOF
[2024-11-04 22:58] VITALS: BMI 44.4
[2024-11-04] MEDS: TORADOL 15 MG IV (22:59)
[2024-11-04] MEDS: NSS 1000 IV (23:00)
[2024-11-04] MEDS: COMPAZINE 10 MG IV (23:02)
[2024-11-04] MEDS: BENADRYL 25 MG IV (23:02)
[2024-11-04 23:08] VITALS: BP 127/69
[2024-11-04] MEDS: MAGNESIUM SULFATE 50 IV (23:11)
[2024-11-05 00:46] VITALS: BP 83/69
[2024-11-05 02:00] VITALS: BP 96/66
--- NOTE | 2024-11-05 04:02 | PTCARENOTE ---
patient is aware that she is discharged from the hospital and is waiting for morning for a ride home.
[2024-11-05 05:58] VITALS: BP 92/64
== END 2024-11-05 06:00 | disposition home or self-care (01) ==
LOC: EMR 21:11
PROVIDERS: Emergency Medicine; EMERGENCY PHYSICIAN Emergency Medicine; FAMILY PHYSICIAN Family Medicine
DX: R51.9 Headache, unspecified (principal); F31.9 Bipolar disorder, unspecified; E78.00 Pure hypercholesterolemia, unspecified; G47.30 Sleep apnea, unspecified; I10 Essential (primary) hypertension; Z90.49 Acquired absence of other specified parts of digestive tract
CPT/HCPCS: 99284; 96374; 96375; 70450; 80053; 83690; 84703; 85025; 87502

== ENCOUNTER 2024-11-07 22:30 | Emergency (ER) | payer OTHER, SELFPAY ==
[2024-11-07 22:56] VITALS: BP 154/98
--- NOTE | 2024-11-07 23:46 | ED.GENMED ---
History of Present Illness
General
Chief Complaint: Crisis Evaluation
Source: patient
Exam Limitations: none
Time Seen by Provider: 11/07/24 22:39
Nursing documentation reviewed up to this point in time: agreed with
History of Present Illness
History of Present Illness:
Patient with history of ADHD, bipolar disorder, and Asperger syndrome, presents to ED after 302 petition was filed by police, after she threatened to kill her siblings with knife this evening. Per police, no injuries occurred at home. Upon
arrival, patient is alert and awake, but confrontational, and uncooperative. However, patient is complaining of right wrist pain from having handcuffs on her, as well as her right foot, which she injured when she kicked a concrete wall. Patient
does not offer any further information at this time.
Past History
Past History
ED Past Medical History: HTN, Hypercholesterolemia, Psychiatric and Other (Asberger's, anxiety, pseudoseizures, ADHD, Bipolar)
ED Past Surgical History: Cholecystectomy
Social History
Tobacco: Non-smoker
Alcohol: None
Drug: None
Personal: Single
Living: with family (on line student)
Employment: Disabled (Due to psychiatric issues)
Family History
Family History: Other (Noncontributory)
Review of Systems
Review of Systems
Allergies reviewed?: Yes
Unable to obtain full review of systems at this time due to: due to acuity
All Other Systems: Not applicable
Phy Exam
Physical Exam
Physical Exam:
Physical Exam
General: no apparent distress, not acutely ill. afebrile
Head: nc/at.
Neck: supple. normal range of motion
Neuro: alert and awake. no focal neurological deficits
Skin: no rash
Psychiatric: agitated and uncooperative
Extremities: right wrist: mild erythema noted without tenderness and normal ROM. right foot: no ecchymosis/swelling/erythema noted
Course
Orders/Labs/Results
Orders:
Orders
11/07/24 22:39
Crisis Consult Urgent
Reason for Consult: 302
11/07/24 23:21
CR Ankle - Right Min 3 Views * Urgent
Comment:
Reason For Exam: trauma
CR Foot - Right Min 3 Views Urgent
Comment:
Reason For Exam: trauma
CR Wrist - Right Min 3 Views Urgent
Comment:
Reason For Exam: trauma
11/08/24 03:40
Test Result ONCE
11/08/24 03:41
HCG, Urine Qualitative Screen Urgent
Date Specimen was Collected: 11/08/24
Time Specimen was Collected: 03:40
Urinalysis Reflex To Culture Urgent
Date Specimen was Collected: 11/08/24
Time Specimen was Collected: 03:40
Urine Drug Abuse Screen Urgent
Date Specimen was Collected: 11/08/24
Time Specimen was Collected: 03:40
Urine Microscopic Reflex Cult Urgent
Urine Culture Urgent
PRUDENCE Source: U
Specimen Description:
Date Specimen was Collected: 11/08/24
Time Specimen was Collected: 03:40
Abnormal Lab Results
11/08/24 11/08/24
03:41 06:14
Leukocyte Esterase Rfl 1+ A
(Negative)
POC Glucose 101 H mg/dl
(70-99)
Vital Signs
Initial and Last Documented VS:
Initial Vital Signs
Temp Pulse Resp BP Pulse Ox
98.3 F 89 22 154/98 100
11/07/24 22:56 11/07/24 22:56 11/07/24 22:56 11/07/24 22:56 11/07/24 22:56
Last Documented Vital Signs
Temp Pulse Resp BP Pulse Ox
98.3 F 91 16 142/92 100
11/07/24 22:56 11/08/24 11:25 11/08/24 11:25 11/08/24 11:25 11/08/24 11:25
MDM/Problems Addressed
MDM/Problems Addressed:
302 petition upheld by delegate. X-ray without any acute findings. Patient is medically cleared for inpatient psychiatric evaluation and treatment.
*Pulse Oximetry
SaO2: 100
Oxygen Mode of Delivery: Room air
Patient hypoxic: no
*Critical Care Note
Total Time (30-74mins, 75-104mins- exclusive of procedures): Not Applicable
ED Attending Note
-
Portions of this chart may have been created with voice recognition software.� Occasional wrong word or��sound alike� substitutions may have occurred due to the inherent limitations of voice recognition software.
Discharge Plan
Departure
Patient Disposition: Psych Facility
Date of Disposition: 11/07/24
Time of Disposition: 23:46
Patient Status:: 302
Discharge Problem:
Homicidal behavior
Prescriptions:
No Action
clonidine HCl 0.1 MG tablet
0.2 mg PO TID@0600,1200,1800
Abilify Maintena 300 mg Suspension,Extended Rel Syring
300 mg IM QMONTH
valacyclovir 1 gram tablet
500 mg PO NOON
aspirin 81 mg Tablet,Chewable
81 mg PO HS
venlafaxine [Effexor] 37.5 mg Tablet
37.5 mg PO DAILY
Control Pill
1 tab PO DAILY
desmopressin 0.1 mg Tablet
0.1 mg PO HS
Referrals:
Boo Madrigal DO [Family Provider, Family Practice]
Interventions
Interventions:
*Risk Screen - Suicide Last Done: 11/07/24 22:47
*General Assessment Last Done: 11/07/24 22:47
*Neglect/Abuse Screening Last Done: 11/07/24 22:47
*ED- Fall Risk Assessment Last Done: 11/07/24 22:47
*ED COVID-19 Vaccine History Last Done: 11/08/24 11:20
*ED Influenza Vaccine History Last Done: 11/08/24 11:20
*Nursing Disposition Last Done: 11/08/24 11:20
ED-Psychological Assessment Last Done: 11/07/24 22:48
Discharge Date and Time
Discharge Date/Time: 11/08/24 11:20
Print Language: [id number]
[2024-11-08 03:52] LABS: Urine Character Clear (Clear)
[2024-11-08 05:51] LABS: Urine Red Blood Cell 0-2 /HPF (0-2)
[2024-11-08 06:15] LABS: Glucose - Point of Care 101 mg/dl (70-99)
[2024-11-08 06:20] LABS: HCG, Urine Qualitative Screen Negative
[2024-11-08 11:25] VITALS: BP 142/92
== END 2024-11-08 11:20 ==
LOC: EMR 22:30
PROVIDERS: EMERGENCY PHYSICIAN Emergency Medicine; FAMILY PHYSICIAN Family Medicine
DX: R45.850 Homicidal ideations (principal); F31.9 Bipolar disorder, unspecified; F84.5 Asperger's syndrome; F41.9 Anxiety disorder, unspecified; F90.9 Attention-deficit hyperactivity disorder, unspecified type; I10 Essential (primary) hypertension; E78.00 Pure hypercholesterolemia, unspecified
CPT/HCPCS: 99285; 73110; 73610; 73630; 80306; 81003; 81015; 81025; 82962; 87086